=== PATIENT | male | born 1975 | race African-American/Black ===

== ENCOUNTER 2016-08-16 06:31 | Emergency (ER) | payer OTHER ==
[~2016-08-16] VITALS: Ht 190.5 cm; Wt 147.2 kg
[~2016-08-16 06:31] MED LIST: GABA300C5 PO; METH4PAK PO; METH5TAB PO; PANT40TA3 PO
[2016-08-16 06:39] VITALS: BP 125/80; PULSE 92; RESP 20; TEMP 98.3; O2SAT 95
[2016-08-16] MEDS ORDERED: TRAM50TA PO (06:54)
[2016-08-16] MEDS ORDERED: GLIM2TAB PO (06:54)
[2016-08-16] MEDS ORDERED: LOSA100T PO (06:54)
[2016-08-16 07:00] VITALS: RESP 16; O2SAT 97
[2016-08-16] MEDS ORDERED: SODIUM CHLOR 0.9% 1000 ML INJ 1,000 ML IV SCH (07:07)
[2016-08-16] MEDS ORDERED: LIDOCAINE VISCOUS 2% SOLN 15 ML UDC PO ONE (07:15)
[2016-08-16] MEDS ORDERED: MORPHINE SULFATE 4 MG/ML INJ IV PUSH ONE (07:15)
[2016-08-16] MEDS ORDERED: ALUMINUM/MAGNESIUM/SIMETH 30 ML CUP PO ONE (07:15)
[2016-08-16] MEDS ORDERED: DICYCLOMINE HCL 10 MG CAP PO ONE (07:15)
[2016-08-16] MEDS ORDERED: HYDROmorphone HCL PF 1 MG/ML VIAL IVS ONE (07:15)
[2016-08-16 07:25] LABS: AUTOMATED NEUTROPHIL # 2.5 TH/MM3 (1.8-7.7); BASOPHIL % 0.5 % (0.0-2.0); EOSINOPHIL % 0.8 % (0.0-4.0); HEMATOCRIT 44.2 % (39.0-51.0); HEMO FLAGS DIFF FINAL; LYMPH % 39.6 % (9.0-44.0); LYMPHOCYTE # 1.9 TH/MM3 (1.0-4.8); MEAN CELL VOLUME 81.9 FL (80.0-100.0); MEAN CORPUSCULAR HEMOGLOBIN 27.1 PG (27.0-34.0); MONO % 9.8 % (0.0-8.0); NEUT % 49.3 % (16.0-70.0); PLATELET COUNT 168 TH/MM3 (150-450); RED CELL DISTRIBUTION WIDTH 12.7 % (11.6-17.2); WHITE BLOOD COUNT 4.9 TH/MM3 (4.0-11.0)
[2016-08-16] MEDS: SODIUM CHLORIDE 0.9% FLUSH 10 ML FLUSH IV FLUSH PRN ×2 (07:33→08:40)
[2016-08-16 07:39] LABS: CHLORIDE 104 MEQ/L (98-107); POTASSIUM 4.2 MEQ/L (3.5-5.1); SODIUM (NA) 141 MEQ/L (136-145)
[2016-08-16 07:43] LABS: ANION GAP 9 MEQ/L (5-15); BICARBONATE 27.6 MEQ/L (21.0-32.0); BLOOD UREA NITROGEN 13 MG/DL (7-18)
[2016-08-16 07:46] LABS: ALT (GPT) 26 U/L (12-78); AST (GOT) 10 U/L (15-37); GLOMERULAR FILTRATION RATE 74 ML/MIN (>89)
[2016-08-16 07:48] LABS: TOTAL BILIRUBIN ADULT 0.4 MG/DL (0.2-1.0)
[2016-08-16 07:49] LABS: ALKALINE PHOSPHATASE 48 U/L (45-117)
--- NOTE | 2016-08-16 08:04 | PD ---
HPI Chief Complaint: Abdominal Pain Time Seen by Provider: 06:57 Travel History International Travel<30 days: No Contact w/Intl Traveler<30days: No Traveled to known affect area: No History of Present Illness HPI 41-year-old male arrives to the ER complaining of abdominal pain nausea and vomiting for about one week. Bowel movements tend to cause nausea and vomiting. The location of the abdominal pain is epigastric and in the region of the left abdomen. He's had no fever. Pizza that was his last food. Hot showers haven't been helpful. Similar events have occurred previously however evidently fairly extensive workups have failed to yield a diagnosis. He reports that past medical history of diabetes type 2, hypertension as well as a right knee surgery. His allergies include metformin and morphine. PFSH Past Medical History Blood Disorders: No Cancer: No Cardiovascular Problems: No Diabetes: Yes Patient Takes Glucophage: No Diminished Hearing: No Endocrine: No Gastrointestinal Disorders: Yes (IBS; UNKOWN ABD/ GASTRIC ISSUES ) GERD: No Genitourinary: No Hiatal Hernia: No Hypertension: Yes Immune Disorder: No Implanted Vascular Access Dvce: Yes Musculoskeletal: Yes (CHRONIC BACK, r knee) Neurologic: Yes Psychiatric: No Reproductive: No Respiratory: Yes Ulcer: No Tetanus Vaccination: < 5 Years Influenza Vaccination: No PNEUMOCCOCAL Vaccine (Year): 2 Past Surgical History Other Surgery: No Social History Alcohol Use: No Tobacco Use: No Substance Use: No Allergies-Medications (Allergen,Severity, Reaction): Coded Allergies: Morphine (Verified Allergy, Severe, NAUSEA (PT ALLERGICE PER PT ON ORDER@0350), 08/16/16) Metformin (Verified Allergy, Unknown, 08/16/16) Reported Meds & Prescriptions Reported Meds & Active Scripts Active Phenergan (Promethazine HCl) 25 Mg Tab 25 Mg PO Q6H PRN Reported Tramadol (Tramadol HCl) 50 Mg Tab 50 Mg PO Q6H PRN Glimepiride 2 Mg Tab 2 Mg PO BIDAC Losartan (Losartan Potassium) 100 Mg Tab 100 Mg PO DAILY Review of Systems Except as stated in HPI: all other systems reviewed are Neg Physical Exam Narrative GENERAL: 41-year-old male pleasant well-nourished well-developed moderate distress SKIN: Focused skin assessment warm/dry. HEAD: Atraumatic. Normocephalic. EYES: Pupils equal and round. No scleral icterus. No injection or drainage. ENT: No nasal bleeding or discharge. Mucous membranes pink and moist. NECK: Trachea midline. No JVD. CARDIOVASCULAR: Regular rate and rhythm. No murmur appreciated. RESPIRATORY: No accessory muscle use. Clear to auscultation. Breath sounds equal bilaterally. GASTROINTESTINAL: Diffuse nonspecific tenderness. MUSCULOSKELETAL: No obvious deformities. No clubbing. No cyanosis. No edema. NEUROLOGICAL: Awake and alert. No obvious cranial nerve deficits. Motor grossly within normal limits. Normal speech. PSYCHIATRIC: Appropriate mood and affect; insight and judgment normal. Data Data Last Documented VS Vital Signs Date Time Temp Pulse Resp B/P Pulse Ox O2 Delivery O2 Flow Rate FiO2 08/16/16 08:15 64 16 129/70 98 Room Air 08/16/16 06:39 98.3 Vital signs reviewed Orders Complete Blood Count With Diff (08/16/16 07:07) Comprehensive Metabolic Panel (08/16/16 07:07) Lipase (08/16/16 07:07) Iv Access Insert/Monitor (08/16/16 07:07) Ecg Monitoring (08/16/16 07:07) Oximetry (08/16/16 07:07) Morphine Inj (Morphine Inj) (08/16/16 07:15) Sodium Chlor 0.9% 1000 Ml Inj (Ns 1000 M (08/16/16 07:07) Sodium Chloride 0.9% Flush (Ns Flush) (08/16/16 07:15) Dicyclomine (Bentyl) (08/16/16 07:15) Hydromorphone Pf Inj (Dilaudid Pf Inj) (08/16/16 07:15) Al-Mag Hy-Si 40-40-4 Mg/Ml Liq (Mag-Al P (08/16/16 07:15) Lidocaine 2% Viscous (Xylocaine 2% Visco (08/16/16 07:15) Hydromorphone Pf Inj (Dilaudid Pf Inj) (08/16/16 08:15) Prochlorperazine Inj (Compazine Inj) (08/16/16 08:15) Sodium Chlor 0.9% 1000 Ml Inj (Ns 1000 M (08/16/16 08:15) Labs Laboratory Tests Test 08/16/16 07:15 White Blood Count 4.9 TH/MM3 Red Blood Count 5.40 MIL/MM3 Hemoglobin 14.6 GM/DL Hematocrit 44.2 % Mean Corpuscular Volume 81.9 FL Mean Corpuscular Hemoglobin 27.1 PG Mean Corpuscular Hemoglobin 33.0 % Concent Red Cell Distribution Width 12.7 % Platelet Count 168 TH/MM3 Mean Platelet Volume 8.4 FL Neutrophils (%) (Auto) 49.3 % Lymphocytes (%) (Auto) 39.6 % Monocytes (%) (Auto) 9.8 % Eosinophils (%) (Auto) 0.8 % Basophils (%) (Auto) 0.5 % Neutrophils # (Auto) 2.5 TH/MM3 Lymphocytes # (Auto) 1.9 TH/MM3 Monocytes # (Auto) 0.5 TH/MM3 Eosinophils # (Auto) 0.0 TH/MM3 Basophils # (Auto) 0.0 TH/MM3 CBC Comment DIFF FINAL Differential Comment Sodium Level 141 MEQ/L Potassium Level 4.2 MEQ/L Chloride Level 104 MEQ/L Carbon Dioxide Level 27.6 MEQ/L Anion Gap 9 MEQ/L Blood Urea Nitrogen 13 MG/DL Creatinine 1.30 MG/DL Estimat Glomerular Filtration 74 ML/MIN Rate Random Glucose 229 MG/DL Calcium Level 8.9 MG/DL Total Bilirubin 0.4 MG/DL Aspartate Amino Transf 10 U/L (AST/SGOT) Alanine Aminotransferase 26 U/L (ALT/SGPT) Alkaline Phosphatase 48 U/L Total Protein 7.8 GM/DL Albumin 4.1 GM/DL Lipase 95 U/L [facility] Medical Decision Making Medical Screen Exam Complete: Yes Emergency Medical Condition: Yes Medical Record Reviewed: Yes Differential Diagnosis Constipation, Gastritis, Acute Cholecystitis, Biliary Colic, Pancreatitis, VICK , Hepatitis, Bowel Obstruction, Cystitis, Mesenteric Ischemia, AAA, Appendicitis , Renal Stone/Hydronephrosis, GERD, perforated viscous Narrative Course CBC & BMP Diagram 08/16/16 07:15 LFTs normal Lipase normal Patient received analgesia and IV fluids and antiemetics. He was reassessed at 8 AM and reports moderate improvement though believes additional medical interventions may help. He received a second 0.5 mg dose of morphine and another liter of saline. His blood work is quite reassuring. Given the recurrent nature of this complaint underlying emergency is considered less likely. Diagnosis Primary Impression: Abdominal pain Qualified Code: R10.9 - Abdominal pain, unspecified location Additional Impression: Nausea & vomiting Qualified Code: R11.2 - Nausea and vomiting, intractability of vomiting not specified, unspecified vomiting type Referrals: DR CALHOUN 2 days Additional Instructions: You have a choice when it comes to health care, and we are glad that you chose [facility]. Hopefully, we have met your expectations on today's visit. You are welcome to return to [facility] at any time, as we are committed to meeting the health care needs of our community. Med/Other Pt SpecificInfo: Prescription(s) given Scripts Promethazine (Phenergan)25 Mg Tab25 Mg PO Q6H PRN (Nausea/Vomiting) #10 TAB Ref 0 Prov:Sebastian Spencer MD 08/16/16 Disposition: 01 DISCHARGE HOME Condition: Stable Sebastian Spencer MD Aug 16, 2016 08:04
[2016-08-16 08:15] VITALS: BP 129/70; PULSE 64; RESP 16; O2SAT 98
[2016-08-16] MEDS ORDERED: HYDROmorphone HCL PF 1 MG/ML VIAL IV PUSH ONE (08:15)
[2016-08-16] MEDS ORDERED: PROCHLORPERAZINE INJ 10 MG/2 ML VIAL IV PUSH ONE (08:15)
[2016-08-16] MEDS ORDERED: SODIUM CHLOR 0.9% 1000 ML INJ 1,000 ML IV ONE (08:15)
[2016-08-16] MEDS ORDERED: PROM25TA5 PO (08:49)
[2016-08-16 09:25] VITALS: RESP 16
[2016-08-16 09:44] VITALS: BP 123/67
== END 2016-08-16 09:46 | disposition home or self-care (01) ==
LOC: PHED 06:31
DX: R10.9 Unspecified abdominal pain (principal); R11.2 Nausea with vomiting, unspecified; E11.9 Type 2 diabetes mellitus without complications; I10 Essential (primary) hypertension; Z79.84 Long term (current) use of oral hypoglycemic drugs; Z87.19 Personal history of other diseases of the digestive system; Z87.39 Personal history of other diseases of the musculoskeletal system and connective tissue; Z86.69 Personal history of other diseases of the nervous system and sense organs; Z87.09 Personal history of other diseases of the respiratory system
CPT/HCPCS: 80053; 83690; 85025; 96361; 96374; 96375; 96376; 99284; J0780; J1170; J7030

== ENCOUNTER 2016-08-17 07:55 | Observation (INO) | payer OTHER ==
[2016-08-17] VITALS (7 sets, daily range): BP systolic 124–184; BP diastolic 65–116; PULSE 60–78; RESP 16–22; TEMP 96.8–99.1; O2SAT 96–98
[~2016-08-17] VITALS: Ht 188 cm; Wt 145.6 kg
[~2016-08-17 07:55] MED LIST changes: -GABA300C5 PO; +GLIM2TAB PO; +LOSA100T PO; -METH4PAK PO; -METH5TAB PO; -PANT40TA3 PO; +PROM25TA5 PO; +TRAM50TA PO
[2016-08-17] MEDS ORDERED: SODIUM CHLOR 0.9% 1000 ML INJ 1,000 ML IV SCH (08:17)
[2016-08-17] MEDS ORDERED: DICYCLOMINE HCL 20 MG/2 ML VIAL IM ONE (08:30)
[2016-08-17] MEDS ORDERED: LIDOCAINE VISCOUS 2% SOLN 15 ML UDC PO ONE (08:30)
[2016-08-17] MEDS ORDERED: FAMOTIDINE 20 MG/2 ML VIAL IV PUSH ONE (08:30)
[2016-08-17] MEDS ORDERED: ALUMINUM/MAGNESIUM/SIMETH 30 ML CUP PO ONE (08:30)
[2016-08-17] MEDS ORDERED: SODIUM CHLORIDE 0.9% FLUSH 10 ML FLUSH IV FLUSH PRN (08:30)
[2016-08-17] MEDS ORDERED: ONDANSETRON HCL 4 MG/2 ML VIAL IVP ONE (08:30)
--- NOTE | 2016-08-17 08:34 | PD ---
HPI Chief Complaint: GI Complaint Time Seen by Provider: 08:06 Travel History International Travel<30 days: No Contact w/Intl Traveler<30days: No Traveled to known affect area: No History of Present Illness HPI Is a 41-year-old man who presents to the emergency department complaining of ongoing mid upper abdominal pain associated with nausea and vomiting. The something the patient had trouble with for some time. He has exacerbations or couple times a year. Previous workup that showed no clear etiology. He has had gastritis and positive H. pylori in the past, looking back at around 2010 or so. Since then he's had multiple negative workups. He has not had any abdominal surgeries. He otherwise had been feeling generally well and healthy prior to about 1 week ago when he began experiencing recurrent upper abdominal pain, with nausea and vomiting. Nausea vomiting symptoms are worse after bowel movement. He has not really noticed any aggravation with eating. He's had decreased bowel movements since the onset of the symptoms. He otherwise had been feeling generally well and healthy. History Past Medical History Narrative Medical Diabetes Hypertension PNEUMOCCOCAL Vaccine (Year): 2 Social History Alcohol Use: No Tobacco Use: No Allergies-Medications (Allergen,Severity, Reaction): Coded Allergies: Morphine (Verified Allergy, Severe, NAUSEA (PT ALLERGICE PER PT ON ORDER@0350), 08/17/16) Metformin (Verified Allergy, Unknown, 08/17/16) Reported Meds & Prescriptions Reported Meds & Active Scripts Active Phenergan (Promethazine HCl) 25 Mg Tab 25 Mg PO Q6H PRN Reported Tramadol (Tramadol HCl) 50 Mg Tab 50 Mg PO Q6H PRN Glimepiride 2 Mg Tab 2 Mg PO BIDAC Losartan (Losartan Potassium) 100 Mg Tab 100 Mg PO DAILY Review of Systems Except as stated in HPI: all other systems reviewed are Neg Physical Exam Narrative GENERAL: 41-year-old man, appears uncomfortable but nontoxic. ENT: No nasal bleeding or discharge. Mucous membranes pink and moist. NECK: Trachea midline. No JVD. CARDIOVASCULAR: Warm and well-perfused. RESPIRATORY: Normal rate and effort. No respiratory distress. GASTROINTESTINAL: Abdomen soft, mild diffuse tenderness, more in the upper abdomen. No rebound or guarding. No focal right upper quadrant tenderness. MUSCULOSKELETAL: No obvious deformities. No edema. NEUROLOGICAL: Awake and alert. No obvious cranial nerve deficits. Motor grossly within normal limits. Normal speech. Data Data Last Documented VS Vital Signs Date Time Temp Pulse Resp B/P Pulse Ox O2 Delivery O2 Flow Rate FiO2 08/17/16 09:19 78 18 184/96 98 Room Air 08/17/16 08:01 99.0 Orders Complete Blood Count With Diff (08/17/16 08:17) Comprehensive Metabolic Panel (08/17/16 08:17) Lipase (08/17/16 08:17) Iv Access Insert/Monitor (08/17/16:17) Ecg Monitoring (08/17/16:17) Oximetry (08/17/16 08:17) Ondansetron Inj (Zofran Inj) (08/17/16 08:30) Sodium Chlor 0.9% 1000 Ml Inj (Ns 1000 M (08/17/16 08:17) Sodium Chloride 0.9% Flush (Ns Flush) (08/17/16 08:30) Famotidine Inj (Pepcid Inj) (08/17/16 08:30) Dicyclomine Inj (Bentyl Inj) (08/17/16 08:30) Al-Mag Hy-Si 40-40-4 Mg/Ml Liq (Mag-Al P (08/17/16 08:30) Lidocaine 2% Viscous (Xylocaine 2% Visco (08/17/16 08:30) Hydromorphone Pf Inj (Dilaudid Pf Inj) (08/17/16 08:45) Ct Abd/Pel W Iv Contrast(Rout) (08/17/16 ) Iohexol 350 Inj (Omnipaque 350 Inj) (08/17/16 10:03) Place In Observation (08/17/16 ) Consult Gastroenterology (08/17/16 ) Activity Oob Ad [place] (08/17/16 10:33) Vital Signs (Adult) DARLENE.Q4H (08/17/16 10:33) Diet Clear Liquid (08/17/16 Lunch) Sodium Chlor 0.9% 1000 Ml Inj (Ns 1000 M (08/17/16 10:45) Ondansetron Inj (Zofran Inj) (08/17/16 10:45) Pantoprazole Inj (Protonix Inj) (08/17/16 10:45) Basic Metabolic Panel (Bmp) (08/18/16 06:00) Admit Order (Ed Use Only) (08/17/16 ) Labs Laboratory Tests Test 08/17/16 08:36 White Blood Count 6.9 TH/MM3 Red Blood Count 5.54 MIL/MM3 Hemoglobin 14.6 GM/DL Hematocrit 45.4 % Mean Corpuscular Volume 81.9 FL Mean Corpuscular Hemoglobin 26.4 PG Mean Corpuscular Hemoglobin 32.2 % Concent Red Cell Distribution Width 12.7 % Platelet Count 166 TH/MM3 Mean Platelet Volume 9.4 FL Neutrophils (%) (Auto) 44.5 % Lymphocytes (%) (Auto) 44.1 % Monocytes (%) (Auto) 10.0 % Eosinophils (%) (Auto) 0.6 % Basophils (%) (Auto) 0.8 % Neutrophils # (Auto) 3.1 TH/MM3 Lymphocytes # (Auto) 3.0 TH/MM3 Monocytes # (Auto) 0.7 TH/MM3 Eosinophils # (Auto) 0.0 TH/MM3 Basophils # (Auto) 0.1 TH/MM3 CBC Comment DIFF FINAL Differential Comment Sodium Level 143 MEQ/L Potassium Level 4.1 MEQ/L Chloride Level 104 MEQ/L Carbon Dioxide Level 30.8 MEQ/L Anion Gap 8 MEQ/L Blood Urea Nitrogen 11 MG/DL Creatinine 1.30 MG/DL Estimat Glomerular Filtration 74 ML/MIN Rate Random Glucose 203 MG/DL Calcium Level 9.0 MG/DL Total Bilirubin 0.5 MG/DL Aspartate Amino Transf 11 U/L (AST/SGOT) Alanine Aminotransferase 27 U/L (ALT/SGPT) Alkaline Phosphatase 48 U/L Total Protein 8.0 GM/DL Albumin 4.3 GM/DL Lipase 105 U/L [facility] Medical Decision Making Medical Screen Exam Complete: Yes Emergency Medical Condition: Yes Interpretation(s) LABS: CBC generally unremarkable. CMP: Glucose 203, otherwise unremarkable Lipase normal CT abdomen and pelvis: No acute disease. No significant change. Differential Diagnosis Gastritis, peptic ulcer disease, hepatobiliary disease, pancreatitis, cholecystitis, other Narrative Course Medical decision making INITIAL: This a 41-year-old male with intermittent episodes of upper abdominal pain and vomiting. Patient has a hiatal hernia, and has a gastritis in the past. No history of hepatobiliary disease. History of pancreatitis. Patient was seen in the emergency department yesterday with similar symptoms. Scattered prescription for Phenergan but hasn't really helped. His tried some tramadol at home as well. We'll recheck labs, consider imaging although all of his imaging is been negative in the past. Reassess. FINAL: Initial workups unremarkable. Patient still was severe pain, vomiting. He is in the ER 24 hours ago. We'll plan on admission for observation and pain control. Diagnosis Primary Impression: Abdominal pain Additional Impression: Nausea & vomiting Ruperto Jaquez MD Aug 17, 2016 08:34
[2016-08-17] MEDS ORDERED: HYDROmorphone HCL PF 1 MG/ML VIAL IV PUSH ONE (08:45)
[2016-08-17 08:47] LABS: AUTOMATED NEUTROPHIL # 3.1 TH/MM3 (1.8-7.7); BASOPHIL # 0.1 TH/MM3 (0-0.2); BASOPHIL % 0.8 % (0.0-2.0); EOSINOPHIL % 0.6 % (0.0-4.0); HEMATOCRIT 45.4 % (39.0-51.0); HEMO FLAGS DIFF FINAL; LYMPH % 44.1 % (9.0-44.0); MEAN CELL VOLUME 81.9 FL (80.0-100.0); MEAN CORPUSCULAR HEMOGLOBIN 26.4 PG (27.0-34.0); MEAN CORPUSCULAR HGB CONC 32.2 % (32.0-36.0); NEUT % 44.5 % (16.0-70.0); PLATELET COUNT 166 TH/MM3 (150-450); RED BLOOD COUNT 5.54 MIL/MM3 (4.50-5.90); RED CELL DISTRIBUTION WIDTH 12.7 % (11.6-17.2); WHITE BLOOD COUNT 6.9 TH/MM3 (4.0-11.0)
[2016-08-17 08:54] LABS: CHLORIDE 104 MEQ/L (98-107); POTASSIUM 4.1 MEQ/L (3.5-5.1); SODIUM (NA) 143 MEQ/L (136-145)
[2016-08-17 08:57] LABS: ANION GAP 8 MEQ/L (5-15); BICARBONATE 30.8 MEQ/L (21.0-32.0)
[2016-08-17 08:58] LABS: BLOOD UREA NITROGEN 11 MG/DL (7-18)
[2016-08-17 09:00] LABS: ALT (GPT) 27 U/L (12-78); AST (GOT) 11 U/L (15-37); GLOMERULAR FILTRATION RATE 74 ML/MIN (>89)
[2016-08-17 09:02] LABS: TOTAL BILIRUBIN ADULT 0.5 MG/DL (0.2-1.0)
[2016-08-17 09:03] LABS: ALKALINE PHOSPHATASE 48 U/L (45-117)
--- NOTE | 2016-08-17 09:59 | RADHPO ---
EXAM DATE/TIME: 08/17/2016 09:25 [facility] COMPARISON: CT ABDOMEN & PELVIS W CONTRAST, October 27, 2014, 20:22. INDICATIONS : Vomiting and diffuse abdominal pain. IV CONTRAST: 95 cc Omnipaque 350 (iohexol) IV ORAL CONTRAST: No oral contrast ingested. RADIATION DOSE: 22.45 CTDIvol (mGy) MEDICAL HISTORY : Gastroesophageal reflux disease. Hypertension. Inflammatory bowel disease.Diabetes SURGICAL HISTORY : ENCOUNTER: Initial ACUITY: 1 day PAIN SCALE: 4/10 LOCATION: Bilateral abdomen pelvis TECHNIQUE: Volumetric scanning of the abdomen and pelvis was performed. Using automated exposure control and ad justment of the mA and/or kV according to patient size, radiation dose was kept as low as reasonably achievable to obtain optimal diagnostic quality images. FINDINGS: LOWER LUNGS: The visualized lower lungs are clear. LIVER: Homogeneous density without lesion. There is no dilation of the biliary tree. No calcified gallston es. SPLEEN: Normal size without lesion. PANCREAS: Within normal limits. KIDNEYS: 12 mm simple cyst in the upper pole of the left kidney is stable. Otherwise kidneys are normal in siz e and shape. There is no mass, stone or hydronephrosis. ADRENAL GLANDS: Within normal limits. VASCULAR: There is no aortic aneurysm. BOWEL/MESENTERY: The stomach, small bowel, and colon demonstrate no acute abnormality. There is no free intraperitone al air or fluid. ABDOMINAL WALL: Within normal limits. RETROPERITONEUM: There is no lymphadenopathy. BLADDER: No wall thickening or mass. REPRODUCTIVE: Within normal limits. INGUINAL: There is no lymphadenopathy or hernia. MUSCULOSKELETAL: Within normal limits for patient age. CONCLUSION: No acute disease. No significant change has occurred. Dharmesh Narayan MD on August 17, 2016 at 9:54 Board Certified Radiologist. This report was verified electronically.
[2016-08-17] MEDS ORDERED: IOHEXOL 350 MG/ML 10 ML VIAL (for RAD DIAG) IV ONE (10:03)
[2016-08-17] MEDS ORDERED: HYDROmorphone HCL PF 1 MG/ML VIAL IV PRN (10:45)
[2016-08-17] MEDS ORDERED: NALOXONE HCL 0.4 MG/ML AMP IV PRN (10:45)
[2016-08-17] MEDS: PANTOPRAZOLE SODIUM 40 MG VIAL IV PUSH SCH (11:09)
[2016-08-17] MEDS: SODIUM CHLOR 0.9% 1000 ML INJ 1,000 ML IV SCH ×3 (11:10→21:49)
[2016-08-17] MEDS: ONDANSETRON HCL 4 MG/2 ML VIAL IV PUSH PRN ×2 (11:49→18:43)
[2016-08-17] MEDS: HYDROmorphone HCL PF 1 MG/ML VIAL IV PRN ×4 (11:50→21:49)
[2016-08-17] MEDS ORDERED: DEXTROSE 50% IN WATER 50 ML VIAL(D50) IV PUSH PRN (12:30)
[2016-08-17] MEDS ORDERED: GLUCAGON 1 MG/ML VIAL OTHER PRN (12:30)
[2016-08-17] MEDS: LOSARTAN 50 MG TAB PO SCH (12:46)
--- NOTE | 2016-08-17 13:22 | MH ---
cc: DOMINGA YOUNG M.D. DATE OF ADMISSION: 08/17/2016 ADMISSION DIAGNOSIS 1. Recurrent upper abdominal pain with recurrent vomiting for 1 week, questionable etiology. 2. Type 2 diabetes mellitus. 3. Hypertension. 4. History of colon polyps. 5. History of cervical disk disease with left cervical radiculopathy. 6. Past history of gastritis. PERTINENT HISTORY This is a 41-year-old black male who came to the emergency room for the second time in the last day. He was seen here at [facility] yesterday with abdominal pain in the upper abdomen with no clear-cut etiology of pain. He had been having vomiting as well. He was given Phenergan and did not really help. He continued to have vomiting and worsening upper abdominal pain. This morning he came to the ED where he had episodes of retching and not really bringing anything up, with crampy pain in his upper abdomen. He states his symptoms began about a week ago but have gotten worse in the last couple days. He has had problems with this symptomatology off and on since 2010. He has had hospitalizations back then, some time up to [id number] weeks. He even went up to [facility] at that time, went there one time. He has had prior gastric emptying studies in the past, did not show any definite gastroparesis. He has had prior upper endoscopies on more than one occasion but the last one was on 12/02/2014 where he was noted to have a gastric polyp, hiatal hernia and gastritis. He had EGD on 03/07/2011 that showed small Reina Leigh tear and gastritis. He has had colon evaluation with colonoscopy on 12/02/2014 that showed a polyp. He has had intermittent CAT scans that did not reveal the cause of his symptoms. He had a HIDA biliary scan on 03/08/2011 that showed normal gallbladder ejection fraction according to the report equaling approximately 40%. There was minimal biliary enteric reflux noted at the time, no evidence of cystic duct or distal common bile duct obstruction. He has had no diarrhea, constipation, melena, rectal bleeding. He has not been vomiting any blood. A CAT scan done today showed no acute process. He is being admitted for pain control and control of his vomiting and a GI consult. MEDICAL HISTORY 1. He has been under treatment for type 2 diabetes mellitus for about a year now. 2. He is under treatment for hypertension. 3. He as mentioned had a colon polyp on 12/02/2014. 4. He has had gastritis on prior EGD on 03/07/2011 and 12/02/2014. 5. He recently was seen by neurosurgery Dr. Stock for a left cervical disk disease with left cervical radiculopathy. He has had no heart disease, history of liver or kidney disease. No lung disease. No stroke or seizure. No thyroid disease. PAST SURGICAL HISTORY 1. He has had arthroscopy of the right knee with microfracture procedure on 02/11/2015. No other operations. 2. He has had the upper endoscopies mentioned on 03/07/2011 and 12/02/2014. 3. He had a colonoscopy in July of 2011 that showed just some slight rectal inflammation, otherwise negative. 4. He had a colonoscopy 12/02/2014 with a polyp removed. ALLERGIES APPARENTLY MORPHINE CAUSES NAUSEA. HE HAS HAD PROBLEM WITH METFORMIN CAUSES DIARRHEA. MEDICATIONS 1. He is on Glimepiride he just takes 2 mg tablet one a day. 2. He is on losartan 100 mg a day. 3. He used to be on Metoprolol 50 mg at bedtime but he states he has not been taking that. 4. He was on Methadone for neck pain 5 mg twice a day but has not been taking that recently. 5. He had Tramadol at home 50 mg that he only would occasionally take for pain. FAMILY HISTORY His parents are living. His mother is 66 and has hyperlipidemia and gastroesophageal reflux disease. Father is 73 and has hypertension, hyperlipidemia and dementia. SOCIAL HISTORY He is . 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 REVIEW OF SYSTEMS GENERAL: No fever, chills, sweats. HEENT: Without complaints. CARDIOVASCULAR: No chest pain, orthopnea, PND. PULMONARY: No cough, hemoptysis, wheezing. GI: As mentioned. : Without complaints. MUSCULOSKELETAL: With the neck pain and pain down the left arm at times from his neck. NEURO: Without any focal weakness, confusion. LABORATORY DATA His white count is 6.9, hemoglobin 14.6, platelet count 166, lipase was 105, AST, ALT, alkaline phosphatase were normal, random glucose was 203, BUN 11, creatinine 1.3, was 1.3 yesterday in the ED. Sodium 143, potassium 4.1, chloride 104, CO2 30.8. IMAGING STUDIES CT scan of the abdomen as mentioned showed no acute process. ASSESSMENT As noted. PLAN We will put him on some IV fluids with normal saline, will monitor his glucose was sliding scale coverage at a low dose of NovoLog. We will hold his glimepiride for now. We are just going to put him on a clear liquid diet for now. Will give him some ondansetron for his vomiting and some Dilaudid for pain. He was given Dilaudid in the ED and has had no problem with that. We will consult gastroenterology for their input. He has had pretty extensive workup in the past for these recurrent symptoms. He gets them about every 6 months, according to him. Sometimes he is able to only have it for a short time and then other times it has lasted for longer. We will put him back on losartan for his blood pressure. MD ADRY Joe/MELLISSA /12:33 PM /12:54 PM
--- NOTE | 2016-08-17 14:57 | GIPROC ---
[facility] [address] [place] [address], [id number] EGD PROCEDURE REPORT EXAM DATE: 08/17/2016 PATIENT NAME: Geo Noonan MR #: [id number] BIRTHDATE: 1975 ATTENDING: Sara Steiner MD ORDER #: [id number] [employer]: Jessica Durham and Sage Matt STATUS: inpatient INDICATIONS: The patient is a 41 yr old male here for an EGD due to vomiting PROCEDURE PERFORMED: EGD w/ biopsy MEDICATIONS: None and Per Anesthesia. TOPICAL ANESTHETIC: none CONSENT: The patient understands the risks and benefits of the procedure and understands that these risks include, but are not limited to: sedation, allergic reaction, infection, perforation and/or bleeding. Alternative means of evaluation and treatment include, among others: physical exam, x-rays, and/or surgical intervention. The patient elects to proceed with this endoscopic procedure. medical equipment was checked for proper function. Hand hygiene and appropriate measures for infection prevention was taken. After the risks, benefits and alternatives of the procedure were thoroughly explained, Informed consent was verified, confirmed and timeout was successfully executed by the treatment team. The patient was anesthetized with topical anesthesia and the [id number] (Pedi C) endoscope was introduced through the mouth and advanced to the second portion of the duodenum. Retroflexed views revealed no abnormalities The gastroscope was then slowly withdrawn and removed. Normal exam, Bx from antrum to R/O H pylori. ADVERSE EVENTS: There were no complications. IMPRESSIONS: 1. Normal exam, Bx from antrum to R/O H pylori 2. Retroflexed views revealed no abnormalities 3- could be gastroparesis because of DM RECOMMENDATIONS: 1. Await biopsy results. Biopsy results will not be ready for 7-10 days. If you don't hear from us in two weeks, call our office for biopsy results. 2. Anti-reflux regimen 3. Gastric emptying study PATIENT CONDITION: stable DISPOSITION: Inpatient REPEAT EXAM: Return as needed for EGD Sara Steiner MD eSigned: Sara Steiner MD 08/17/2016 2:57 PM cc:
[2016-08-17] MEDS ORDERED: PROPOFOL 200 MG/20 ML AMP IV ONE (15:47)
[2016-08-17] MEDS: INSULIN ASPART SUPPLEMENTAL SCALE SQ SCH ×2 (16:25→21:00)
[2016-08-17] MEDS: DOCUSATE SODIUM 100 MG/10 ML UDC PO SCH (20:59)
[2016-08-18] VITALS: BP 130/75; PULSE 65; RESP 22; TEMP 97.6; O2SAT 97
[2016-08-18] MEDS: HYDROmorphone HCL PF 1 MG/ML VIAL IV PRN ×6 (02:34→23:22)
[2016-08-18] MEDS: ONDANSETRON HCL 4 MG/2 ML VIAL IV PUSH PRN (05:57)
[2016-08-18] MEDS: SODIUM CHLOR 0.9% 1000 ML INJ 1,000 ML IV SCH ×3 (05:58→21:08)
[2016-08-18] MEDS: INSULIN ASPART SUPPLEMENTAL SCALE SQ SCH ×4 (06:04→21:00)
[2016-08-18 06:17] LABS: POTASSIUM 3.9 MEQ/L (3.5-5.1)
[2016-08-18 06:40] LABS: BICARBONATE 27.5 MEQ/L (21.0-32.0)
[2016-08-18 08:00] VITALS: BP 140/86; PULSE 51; RESP 18; TEMP 98.3; O2SAT 93
[2016-08-18] MEDS: LOSARTAN 50 MG TAB PO SCH (08:14)
[2016-08-18] MEDS: PANTOPRAZOLE SODIUM 40 MG VIAL IV PUSH SCH (08:15)
[2016-08-18] MEDS: DOCUSATE SODIUM 100 MG/10 ML UDC PO SCH ×2 (08:15→21:09)
--- NOTE | 2016-08-18 09:46 | HHI.PR ---
Subjective Remarks Still nausea but no vomiting. Has been on liquid diet. Still has epigastric pain but is better. Still using Dilaudid. EGD yesterday was negative. Objective Vitals Vital Signs Date Time Temp Pulse Resp B/P Pulse Ox O2 Delivery O2 Flow Rate FiO2 08/18/16 08:00 98.3 51 18 140/86 93 08/18/16 00:00 97.6 65 22 130/75 97 08/17/16 20:00 99.1 60 22 142/84 97 08/17/16 16:31 20 08/17/16 16:00 97.1 61 20 158/94 96 08/17/16 15:27 56 17 135/69 98 08/17/16 15:17 59 16 146/80 98 08/17/16 15:07 98.1 79 16 130/63 98 08/17/16 13:19 98.5 65 18 124/65 96 08/17/16 11:48 08/17/16 11:46 96.8 77 22 176/116 96 08/17/16 08/17/16 08/18/16 15:00 23:00 07:00 Intake Total 1250 ml 1249 ml 1513 ml Balance 1250 ml 1249 ml 1513 ml Intake Oral 420 ml IV Total 1250 ml 849 ml 1093 ml Other 400 ml # Voids 3 # Bowel Movements 1 Result Diagram: 08/17/16 0836 08/18/16 0542 Other Results Laboratory Tests Test 08/17/16 08/18/16 08:36 05:42 White Blood Count 6.9 TH/MM3 Red Blood Count 5.54 MIL/MM3 Hemoglobin 14.6 GM/DL Hematocrit 45.4 % Mean Corpuscular Volume 81.9 FL Mean Corpuscular Hemoglobin 26.4 PG Mean Corpuscular Hemoglobin 32.2 % Concent Red Cell Distribution Width 12.7 % Platelet Count 166 TH/MM3 Mean Platelet Volume 9.4 FL Neutrophils (%) (Auto) 44.5 % Lymphocytes (%) (Auto) 44.1 % Monocytes (%) (Auto) 10.0 % Eosinophils (%) (Auto) 0.6 % Basophils (%) (Auto) 0.8 % Neutrophils # (Auto) 3.1 TH/MM3 Lymphocytes # (Auto) 3.0 TH/MM3 Monocytes # (Auto) 0.7 TH/MM3 Eosinophils # (Auto) 0.0 TH/MM3 Basophils # (Auto) 0.1 TH/MM3 CBC Comment DIFF FINAL Differential Comment Sodium Level 143 MEQ/L 142 MEQ/L Potassium Level 4.1 MEQ/L 3.9 MEQ/L Chloride Level 104 MEQ/L 106 MEQ/L Carbon Dioxide Level 30.8 MEQ/L 27.5 MEQ/L Anion Gap 8 MEQ/L 9 MEQ/L Blood Urea Nitrogen 11 MG/DL 9 MG/DL Creatinine 1.30 MG/DL 1.00 MG/DL Estimat Glomerular Filtration 74 ML/MIN 100 ML/MIN Rate Random Glucose 203 MG/DL 179 MG/DL Calcium Level 9.0 MG/DL 8.0 MG/DL Total Bilirubin 0.5 MG/DL Aspartate Amino Transf 11 U/L (AST/SGOT) Alanine Aminotransferase 27 U/L (ALT/SGPT) Alkaline Phosphatase 48 U/L Total Protein 8.0 GM/DL Albumin 4.3 GM/DL Lipase 105 U/L EGD yesterday negative. Imaging Last Impressions Abdomen/Pelvis CT 08/17/16 0000 Signed Impressions: Service Date/Time: Wednesday, August 17, 2016 09:25 - CONCLUSION: No acute disease. No significant change has occurred. Dharmesh Narayan MD Objective Remarks Exam: WDWN black male in no distress. HEENT: Pupils equal, mouth negative Neck: No JVD Heart: RRR with no murmur Lungs: clear Abdomen: Soft, mild epigastric tenderness, no rebound or guarding Extremities: Negative Neuro: negative A/P Assessment and Plan Assessment: --Recurrent epigastric pain with vomiting: EGD negative. Check for gastroparesis. --Hypertension --Type 2 diabetes mellitus --Hx of colon polyp --Cervical disc disease with radiculopathy Plan: I will order a gastric emptying study. I will advance to a diabetic diet. Will continue monitoring of glucose and sliding scale until he is able to eat without vomiting. Continue BP medication. Continue pain medication and Ondansetron as needed. Gorge Fernandez MD Aug 18, 2016 09:46
[2016-08-18 12:00] VITALS: BP 129/77; PULSE 70; RESP 16; TEMP 97; O2SAT 99
[2016-08-18 16:00] VITALS: BP 135/77; PULSE 65; RESP 18; TEMP 98.6; O2SAT 96
--- NOTE | 2016-08-18 18:01 | HHI.GIFU ---
GI Follow-up Note Consult Follow-up Subjective: seen, examined.Tolerated full liquid diet .Awaiting gastric emptying study Objective: PHYSICAL EXAMINATION: Vitals signs stable No fever Vital Signs Date Time Temp Pulse Resp B/P Pulse Ox O2 Delivery O2 Flow Rate FiO2 08/18/16 12:00 97.0 70 16 129/77 99 HEENT: Pupils round and reactive to light; normocephalic; atraumatic; no jaundice. Throat is clear. NECK: Neck is supple, no JVD, no lymphadenopathy. CHEST: Chest is clear to auscultation and percussion. CARDIAC: Regular rate and rhythm with no murmur gallop or rubs. ABDOMEN: Soft, nondistended, nontender; no hepatosplenomegaly; bowel sounds are present in all four quadrants. EXTREMITIES: No clubbing, cyanosis, or edema. SKIN: Normal; no rash; no jaundice. 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 Available Data (labs, X- Rays, Procedues) : Laboratory Tests Test 08/17/16 08/18/16 08:36 05:42 White Blood Count 6.9 TH/MM3 Red Blood Count 5.54 MIL/MM3 Hemoglobin 14.6 GM/DL Hematocrit 45.4 % Mean Corpuscular Volume 81.9 FL Mean Corpuscular Hemoglobin 26.4 PG Mean Corpuscular Hemoglobin 32.2 % Concent Red Cell Distribution Width 12.7 % Platelet Count 166 TH/MM3 Mean Platelet Volume 9.4 FL Neutrophils (%) (Auto) 44.5 % Lymphocytes (%) (Auto) 44.1 % Monocytes (%) (Auto) 10.0 % Eosinophils (%) (Auto) 0.6 % Basophils (%) (Auto) 0.8 % Neutrophils # (Auto) 3.1 TH/MM3 Lymphocytes # (Auto) 3.0 TH/MM3 Monocytes # (Auto) 0.7 TH/MM3 Eosinophils # (Auto) 0.0 TH/MM3 Basophils # (Auto) 0.1 TH/MM3 CBC Comment DIFF FINAL Differential Comment Sodium Level 143 MEQ/L 142 MEQ/L Potassium Level 4.1 MEQ/L 3.9 MEQ/L Chloride Level 104 MEQ/L 106 MEQ/L Carbon Dioxide Level 30.8 MEQ/L 27.5 MEQ/L Anion Gap 8 MEQ/L 9 MEQ/L Blood Urea Nitrogen 11 MG/DL 9 MG/DL Creatinine 1.30 MG/DL 1.00 MG/DL Estimat Glomerular Filtration 74 ML/MIN 100 ML/MIN Rate Random Glucose 203 MG/DL 179 MG/DL Calcium Level 9.0 MG/DL 8.0 MG/DL Total Bilirubin 0.5 MG/DL Aspartate Amino Transf 11 U/L (AST/SGOT) Alanine Aminotransferase 27 U/L (ALT/SGPT) Alkaline Phosphatase 48 U/L Total Protein 8.0 GM/DL Albumin 4.3 GM/DL Lipase 105 U/L ASSESSMENT/PLAN: abdominal pain, nausea, vomiting possible gastroparesis gastritis Recommendations gastric emptying study continue antiemetics , ppi if negative hida scan It was a pleasure seeing Geo Noonan. Thank you for this consult. Entered by: Shelly Jones MD Aug 18, 2016 18:01
[2016-08-18 20:00] VITALS: BP 153/94; PULSE 59; RESP 20; TEMP 98.9; O2SAT 98
[2016-08-19] VITALS: BP 143/79; PULSE 64; RESP 20; TEMP 97.2; O2SAT 96
[2016-08-19] MEDS: HYDROmorphone HCL PF 1 MG/ML VIAL IV PRN ×5 (02:41→15:21)
[2016-08-19] MEDS: INSULIN ASPART SUPPLEMENTAL SCALE SQ SCH ×4 (05:54→21:15)
--- NOTE | 2016-08-19 07:02 | HHI.GIFU ---
GI Follow-up Note Consult Follow-up Subjective: Patient laying in bed comfortably, no new complaints except , feeling better.Still epigastric discomfort, nausea.No vomiting, tolerated full liquid diet well. Objective: PHYSICAL EXAMINATION: Vitals signs stable No fever Vital Signs Date Time Temp Pulse Resp B/P Pulse Ox O2 Delivery O2 Flow Rate FiO2 08/19/16 06:19 18 08/19/16 00:00 97.2 64 20 143/79 96 HEENT: Pupils round and reactive to light; normocephalic; atraumatic; no jaundice. Throat is clear, obese NECK: Neck is supple, no JVD, no lymphadenopathy. CHEST: Chest is clear to auscultation and percussion. CARDIAC: Regular rate and rhythm with no murmur gallop or rubs. ABDOMEN: Soft, nondistended, epigastric tenderness; no hepatosplenomegaly; bowel sounds are present in all four quadrants, obese EXTREMITIES: No clubbing, cyanosis, or edema. SKIN: Normal; no rash; no jaundice. 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 Available Data (labs, X- Rays, Procedues) : Laboratory Tests Test 08/17/16 08/18/16 08:36 05:42 White Blood Count 6.9 TH/MM3 Red Blood Count 5.54 MIL/MM3 Hemoglobin 14.6 GM/DL Hematocrit 45.4 % Mean Corpuscular Volume 81.9 FL Mean Corpuscular Hemoglobin 26.4 PG Mean Corpuscular Hemoglobin 32.2 % Concent Red Cell Distribution Width 12.7 % Platelet Count 166 TH/MM3 Mean Platelet Volume 9.4 FL Neutrophils (%) (Auto) 44.5 % Lymphocytes (%) (Auto) 44.1 % Monocytes (%) (Auto) 10.0 % Eosinophils (%) (Auto) 0.6 % Basophils (%) (Auto) 0.8 % Neutrophils # (Auto) 3.1 TH/MM3 Lymphocytes # (Auto) 3.0 TH/MM3 Monocytes # (Auto) 0.7 TH/MM3 Eosinophils # (Auto) 0.0 TH/MM3 Basophils # (Auto) 0.1 TH/MM3 CBC Comment DIFF FINAL Differential Comment Sodium Level 143 MEQ/L 142 MEQ/L Potassium Level 4.1 MEQ/L 3.9 MEQ/L Chloride Level 104 MEQ/L 106 MEQ/L Carbon Dioxide Level 30.8 MEQ/L 27.5 MEQ/L Anion Gap 8 MEQ/L 9 MEQ/L Blood Urea Nitrogen 11 MG/DL 9 MG/DL Creatinine 1.30 MG/DL 1.00 MG/DL Estimat Glomerular Filtration 74 ML/MIN 100 ML/MIN Rate Random Glucose 203 MG/DL 179 MG/DL Calcium Level 9.0 MG/DL 8.0 MG/DL Total Bilirubin 0.5 MG/DL Aspartate Amino Transf 11 U/L (AST/SGOT) Alanine Aminotransferase 27 U/L (ALT/SGPT) Alkaline Phosphatase 48 U/L Total Protein 8.0 GM/DL Albumin 4.3 GM/DL Lipase 105 U/L ASSESSMENT/PLAN: nausea, vomiting, epigastric tenderness possible gastroparesis gastritis Recommendations await gastric emptying , if negative HIDA scan advance diet as tolerated ppi, antiemetics if tolerates food , consider d/c home in 1-2 days with fu office in 1-2 weeks It was a pleasure seeing Geo Noonan. Thank you for this consult. Entered by: Shelly Jones MD Aug 19, 2016 07:02
--- NOTE | 2016-08-19 07:02 | HHI.PR ---
Subjective Remarks Still having pain after eating. He states he is still not ready to go home. Objective Vitals Vital Signs Date Time Temp Pulse Resp B/P Pulse Ox O2 Delivery O2 Flow Rate FiO2 08/19/16 06:19 18 08/19/16 00:00 97.2 64 20 143/79 96 08/18/16 20:00 98.9 59 20 153/94 98 08/18/16 16:00 98.6 65 18 135/77 96 08/18/16 12:00 97.0 70 16 129/77 99 08/18/16 08:00 98.3 51 18 140/86 93 08/18/16 08/18/16 08/19/16 15:00 23:00 07:00 Intake Total 1320 ml 2260 ml Balance 1320 ml 2260 ml Intake Oral 1320 ml 60 ml IV Total 2200 ml # Voids 7 5 # Bowel Movements 0 Result Diagram: 08/17/16 0836 08/18/16 0542 Other Results Laboratory Tests Test 08/17/16 08/18/16 08:36 05:42 White Blood Count 6.9 TH/MM3 Red Blood Count 5.54 MIL/MM3 Hemoglobin 14.6 GM/DL Hematocrit 45.4 % Mean Corpuscular Volume 81.9 FL Mean Corpuscular Hemoglobin 26.4 PG Mean Corpuscular Hemoglobin 32.2 % Concent Red Cell Distribution Width 12.7 % Platelet Count 166 TH/MM3 Mean Platelet Volume 9.4 FL Neutrophils (%) (Auto) 44.5 % Lymphocytes (%) (Auto) 44.1 % Monocytes (%) (Auto) 10.0 % Eosinophils (%) (Auto) 0.6 % Basophils (%) (Auto) 0.8 % Neutrophils # (Auto) 3.1 TH/MM3 Lymphocytes # (Auto) 3.0 TH/MM3 Monocytes # (Auto) 0.7 TH/MM3 Eosinophils # (Auto) 0.0 TH/MM3 Basophils # (Auto) 0.1 TH/MM3 CBC Comment DIFF FINAL Differential Comment Total Bilirubin 0.5 MG/DL Aspartate Amino Transf 11 U/L (AST/SGOT) Alanine Aminotransferase 27 U/L (ALT/SGPT) Alkaline Phosphatase 48 U/L Total Protein 8.0 GM/DL Albumin 4.3 GM/DL Lipase 105 U/L Sodium Level 142 MEQ/L Potassium Level 3.9 MEQ/L Chloride Level 106 MEQ/L Carbon Dioxide Level 27.5 MEQ/L Anion Gap 9 MEQ/L Blood Urea Nitrogen 9 MG/DL Creatinine 1.00 MG/DL Estimat Glomerular Filtration 100 ML/MIN Rate Random Glucose 179 MG/DL Calcium Level 8.0 MG/DL Imaging Last Impressions Abdomen/Pelvis CT 08/17/16 0000 Signed Impressions: Service Date/Time: Wednesday, August 17, 2016 09:25 - CONCLUSION: No acute disease. No significant change has occurred. Dharmesh Narayan MD Objective Remarks Exam: WDWN black male in no distress. HEENT: Pupils equal, mouth negative Neck: No JVD Heart: RRR with no murmur Lungs: clear Abdomen: Soft, mild epigastric tenderness, no rebound or guarding Extremities: Negative Neuro: negative A/P Assessment and Plan Assessment: --Recurrent epigastric pain with nausea/vomiting: EGD negative. Check for gastroparesis. --Hypertension --Type 2 diabetes mellitus --Hx of colon polyp --Cervical disc disease with radiculopathy Plan: Gastric emptying study not done yet (problems with scanner yesterday) If gastric emptying study is negative then I agree that a HIDA scan to check for biliary dyskinesia would be in order. He would need to be off Dilaudid for 24 hours to do that test. Will continue monitoring of glucose and sliding scale until he is able to eat without vomiting. Continue BP medication. Continue pain medication and Ondansetron as needed. Gorge Fernandez MD Aug 19, 2016 07:02
--- NOTE | 2016-08-19 07:58 | MB ---
cc: SAW VELASQUEZ M.D. DATE OF CONSULTATION 08/17/2016 DATE OF 1975 REASON FOR REFERRAL Abdominal discomfort, nausea, vomiting. Thank you for the consultation for this 41-year-old male who is known to have a history of diabetes and hypertension. The patient came to the emergency room because he was having abdominal cramping in the upper abdomen and he had significant nausea and vomiting not able to tolerate food. Apparently he was in the emergency room. He was given Phenergan and sent home, but came back and not tolerated any intake. Apparently he has had these symptom for six years on and off. He had seen Malika one time in the past and he has seen Dr. Rubio who scoped him and did upper endoscopy and colonoscopy in the past and there was no diagnosis made except colon polyps and mild gastritis. The patient denied any blood. No hematemesis. No other GI symptoms. PAST MEDICAL HISTORY Significant for: 1. Hypertension 2. Diabetes 3. Colon polyps 4. Cervical disk disease PAST SURGICAL HISTORY Significant for: 1. Colon EGD 2. Knee surgery ALLERGIES Multiple including MORPHINE AND METFORMIN. MEDICATIONS Reviewed in the chart. FAMILY HISTORY Significant for hyperlipidemia, reflux symptoms, hypertension, and dementia. SOCIAL HISTORY He denied any tobacco or alcohol. He denies any drugs. 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 REVIEW OF SYSTEMS All 12-point negative except HPI. PHYSICAL EXAMINATION Alert, oriented no acute distress. VITAL SIGNS: Stable at this time. HEENT: Pupils are round and reactive to light. NECK: Supple. CHEST: Clear. CARDIAC: Regular rate and rhythm. ABDOMEN: Soft, mild tenderness in the mid epigastric area. Positive bowel sounds. EXTREMITIES: No edema, clubbing or cyanosis. NEUROLOGIC: Intact. PSYCHOLOGIC: Appropriate. LABORATORY DATA Normal CBC, white count 6.9, hemoglobin 14.6, platelets 166. BUN 11, creatinine 1.3, normal liver function test. CT scan was unremarkable. ASSESSMENT/PLAN A 41-year-old -[place] gentleman who has diabetes and hypertension. He has chronic nausea and vomiting, unclear etiology of his symptoms, could be gastritis or gastroparesis. I am planning on doing upper endoscopy today. If this is negative, we might need to do a gastric emptying study. Apparently he had one about seven years ago which was unremarkable at that time. Meanwhile, also could be gastroenteritis. We will continue supportive care, hydration, antiemetics. Further plan depends on the finding on the above investigation. I do not see any sign of pancreatitis or abnormal liver function tests on him. MD JASON Yi/CHANDRAKANT /6:53 PM /7:42 AM
[2016-08-19 08:00] VITALS: BP 130/80; PULSE 50; RESP 18; TEMP 96.9; O2SAT 97
[2016-08-19] MEDS: PANTOPRAZOLE SODIUM 40 MG VIAL IV PUSH SCH (08:46)
[2016-08-19] MEDS: DOCUSATE SODIUM 100 MG/10 ML UDC PO SCH ×2 (08:47→21:15)
[2016-08-19] MEDS: SODIUM CHLOR 0.9% 1000 ML INJ 1,000 ML IV SCH ×2 (08:48→18:19)
[2016-08-19] MEDS: LOSARTAN 50 MG TAB PO SCH (08:49)
[2016-08-19 12:00] VITALS: BP 144/85; PULSE 56; RESP 20; TEMP 98.2; O2SAT 97
[2016-08-19 16:53] VITALS: BP 138/80; PULSE 60; RESP 20; TEMP 98.8; O2SAT 97
--- NOTE | 2016-08-19 17:00 | RADHPO ---
EXAM DATE/TIME: 08/19/2016 15:26 [facility] COMPARISON: No previous studies available for comparison. INDICATIONS : Abdominal pain for 2 days. DOSE: 1 mCi Tc99m Sulfur Colloid Labeled Whole egg PO IMAGIN hr MEDICAL HISTORY : Diabetes mellitus type 2. SURGICAL HISTORY : Right knee. ENCOUNTER: Initial ACUITY: 2 days PAIN SCALE: 3/10 LOCATION: Bilateral Abdomen. TECHNIQUE: Following the oral ingestion of radiotracer-labeled meal, dynamic sequential images in the URDU projec tion were acquired with simultaneous computer acquisition. The data set was decay-corrected. FINDINGS: LAG PHASE: There is 0 minutes before onset of gastric emptying. EMPTYING: Gastric emptying kinetics are linear. The decay-corrected, back-extrapolated half-time of emptying i s 18 minutes. (Normal for this lab is 45- 90 minutes.) INTERVENTION: None. CONCLUSION: Rapid gastric emptying with a half-time of emptying of 18 minutes. Vinicius Rutherford MD on August 19, 2016 at 16:58 Board Certified Radiologist. This report was verified electronically.
[2016-08-19] MEDS: ACETAMINOPHEN/HYDROcodone 325 MG/5 MG TAB PO PRN ×2 (18:08→22:20)
[2016-08-19 20:43] VITALS: BP 142/73; PULSE 68; RESP 18; TEMP 99.5; O2SAT 98
[2016-08-20 00:46] VITALS: BP 130/83; PULSE 69; RESP 16; TEMP 98; O2SAT 96
[2016-08-20] MEDS: ACETAMINOPHEN/HYDROcodone 325 MG/5 MG TAB PO PRN ×2 (02:11→14:30)
[2016-08-20] MEDS: SODIUM CHLOR 0.9% 1000 ML INJ 1,000 ML IV SCH ×3 (02:12→18:45)
[2016-08-20] MEDS: ONDANSETRON HCL 4 MG/2 ML VIAL IV PUSH PRN ×3 (02:31→18:36)
[2016-08-20] MEDS: HYDROmorphone HCL PF 1 MG/ML VIAL IV PRN ×5 (02:36→14:31)
[2016-08-20] MEDS: INSULIN ASPART SUPPLEMENTAL SCALE SQ SCH ×4 (06:23→20:15)
--- NOTE | 2016-08-20 07:39 | HHI.PR ---
Subjective Remarks Was feeling better yesterday but started having significant pain nausea vomiting again last night after he took Lortab. Patient reports that his pain is not necessarily associated with food intake but seems to be more associated with when his "intestines move". Has not noted any change in his urine color. Objective Vitals Vital Signs Date Time Temp Pulse Resp B/P Pulse Ox O2 Delivery O2 Flow Rate FiO2 08/20/16 06:49 20 08/20/16 03:16 20 08/20/16 03:16 20 08/20/16 00:46 98.0 69 16 130/83 96 08/19/16 20:43 99.5 68 18 142/73 98 08/19/16 16:53 98.8 60 20 138/80 97 08/19/16 12:00 98.2 56 20 144/85 97 08/19/16 08:00 96.9 50 18 130/80 97 08/19/16 08/19/16 08/20/16 15:00 23:00 07:00 Intake Total 625 ml Balance 625 ml IV Total 625 ml # Voids 3 2 GENERAL: Athletic build, no acute distress, alert and oriented, cooperative. SKIN: Warm and dry. HEAD: Normocephalic. EYES: No scleral icterus. No injection or drainage. NECK: Supple, trachea midline. No JVD or lymphadenopathy. CARDIOVASCULAR: Regular rate and rhythm without murmurs, gallops, or rubs. RESPIRATORY: Breath sounds equal bilaterally. No accessory muscle use. GASTROINTESTINAL: Abdomen soft, nondistended. Mild tenderness to palpation globally but primarily in the periumbilical area. Bowel sounds normal. MUSCULOSKELETAL: No cyanosis, or edema. BACK: Nontender without obvious deformity. No CVA tenderness. Result Diagram: 08/17/16 0836 08/18/16 0542 Imaging Last Impressions Abdomen/Pelvis CT 08/17/16 0000 Signed Impressions: Service Date/Time: Wednesday, August 17, 2016 09:25 - CONCLUSION: No acute disease. No significant change has occurred. Dharmesh Narayan MD Urinary Catheter: No Vascular Central Line Catheter: No A/P Problem List: (1) Abdominal pain Status: Acute Plan: recurrent issue since 2010. EGD, gastric emptying essentially negative. ? HIDA scan. He reports he has 2 negative HIDA scans in the past. ? check protoporphyrins. We'll try 1 dose of Solu-Medrol and nortriptyline to see if this may decrease his GI sensitivity since he reports the pain of intestinal movement tends to initiate cycle of emesis. (2) Nausea & vomiting Status: Acute Plan: improved. tolerated PO yesterday but became ill with nausea vomiting again last night. (3) Diabetes mellitus Status: Chronic Plan: Resume outpt meds when tolerating oral intake well. A1c pending (4) Hypertension Status: Chronic Plan: fair control. continue treatment. Assessment and Plan Discharge Planning Discharge when he is tolerating oral intake and not having significant flare of abdominal pain. Hopefully next 1-2 days. Sadly we weren't able to get him out today so he could be present for his ' s scheduled of their second son. Problem Qualifiers (1) Abdominal pain: Qualified Code: R10.84 - Generalized abdominal pain (2) Diabetes mellitus: (3) Hypertension: Qualified Code: I10 - Essential hypertension Neftali Massey MD PhD Aug 20, 2016 07:39
[2016-08-20] MEDS: PANTOPRAZOLE SODIUM 40 MG VIAL IV PUSH SCH (07:59)
[2016-08-20] MEDS: LOSARTAN 50 MG TAB PO SCH (08:00)
[2016-08-20] MEDS: DOCUSATE SODIUM 100 MG/10 ML UDC PO SCH ×2 (08:00→20:13)
[2016-08-20] MEDS ORDERED: methylPREDNISolone SOD SUCC 40 MG/1 ML VIAL IV PUSH ONE (08:15)
[2016-08-20] MEDS ORDERED: NORTRIPTYLINE HCL 25 MG CAP PO ONE (08:15)
[2016-08-20 08:36] VITALS: BP 139/81; PULSE 72; RESP 15; TEMP 98.4; O2SAT 97
--- NOTE | 2016-08-20 09:07 | HHI.GIFU ---
Subjective Remarks patient is having more nausea and discomfort today, started with having bowel movements, again he said he has these episodes every few months randomly without warning, he does not have constipation usually with it and not related to stress. Objective Vitals I&O Vital Signs Date Time Temp Pulse Resp B/P Pulse Ox O2 Delivery O2 Flow Rate FiO2 08/20/16 08:36 98.4 72 15 139/81 97 08/20/16 06:49 20 08/20/16 03:16 20 08/20/16 03:16 20 08/20/16 00:46 98.0 69 16 130/83 96 08/19/16 20:43 99.5 68 18 142/73 98 08/19/16 16:53 98.8 60 20 138/80 97 08/19/16 12:00 98.2 56 20 144/85 97 I/O 08/19/16 08/19/16 08/19/16 08/20/16 08/20/16 08/20/16 07:00 15:00 23:00 07:00 15:00 23:00 Intake Total 2260 ml 625 ml 1000 ml Balance 2260 ml 625 ml 1000 ml Intake Oral 60 ml IV Total 2200 ml 625 ml 1000 ml # Voids 5 3 2 # Bowel Movements 0 Physical Exam HEENT: Pupils round and reactive to light; normocephalic; atraumatic; no jaundice. Throat is clear. NECK: Neck is supple, no JVD, no lymphadenopathy. CHEST: Chest is clear to auscultation and percussion. CARDIAC: Regular rate and rhythm with no murmur gallop or rubs. ABDOMEN: Soft, nondistended, mild mid epigastric tender from vomiting this am; no hepatosplenomegaly; bowel sounds are present in all four quadrants. EXTREMITIES: No clubbing, cyanosis, or edema. SKIN: Normal; no rash; no jaundice. 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 Assessment and Plan Plan nausea vomiting, abdominal discomfort, ? etiology GES was rapid emptying, I doublt HIDA will show anything labs to R/O Porphyria, continue supportive care YI antiemetic. Sara Steiner MD Aug 20, 2016 09:07
[2016-08-20 12:51] VITALS: BP 155/96; PULSE 67; RESP 15; TEMP 99.4; O2SAT 98
[2016-08-20] MEDS ORDERED: KETOROLAC TROMETHAMINE 30 MG/ML (IVP) VIAL IV PUSH ONE (15:15)
[2016-08-20] MEDS: HYDROmorphone HCL PF 2 MG/ML VIAL IV PRN ×3 (15:31→21:47)
[2016-08-20 16:00] VITALS: BP 138/73; PULSE 81; RESP 20; TEMP 99.3; O2SAT 93
[2016-08-20 20:00] VITALS: BP 122/71; PULSE 76; RESP 20; TEMP 99.5; O2SAT 97
[2016-08-21] VITALS: BP 122/77; PULSE 87; RESP 19; TEMP 97.7; O2SAT 95
[2016-08-21] MEDS: SODIUM CHLOR 0.9% 1000 ML INJ 1,000 ML IV SCH ×3 (00:15→16:04)
[2016-08-21] MEDS: HYDROmorphone HCL PF 2 MG/ML VIAL IV PRN ×6 (01:13→19:36)
[2016-08-21] MEDS: INSULIN ASPART SUPPLEMENTAL SCALE SQ SCH ×4 (06:42→21:09)
--- NOTE | 2016-08-21 06:45 | HHI.PR ---
Subjective Remarks Feeling better this morning but had a rough day yesterday. Reports that he vomited approximately 7 times yesterday. We adjusted his Dilaudid dosing and gave him 1 injection of Toradol which seems to help. He slept well since about midnight or 1 AM he says. On a brighter note his baby boy Guy was born yesterday and is doing well. Patient reports that he ambulates around the room and in the null several times a day when his stomach isn't bothering him. Objective Vitals Vital Signs Date Time Temp Pulse Resp B/P Pulse Ox O2 Delivery O2 Flow Rate FiO2 08/21/16 00:00 97.7 87 19 122/77 95 08/20/16 20:00 99.5 76 20 122/71 97 08/20/16 16:01 20 08/20/16 16:00 99.3 81 20 138/73 93 08/20/16 13:03 20 08/20/16 12:51 99.4 67 15 155/96 98 08/20/16 08:36 98.4 72 15 139/81 97 08/20/16 08/20/16 08/21/16 15:00 23:00 07:00 Intake Total 480 ml Balance 480 ml Intake Oral 480 ml # Voids 5 2 # Bowel Movements 2 0 GENERAL: Athletic build, sleeping, arouses to voice. Alert and oriented and cooperative with exam. SKIN: Warm and dry. HEAD: Normocephalic. EYES: No scleral icterus. No injection or drainage. NECK: Supple, trachea midline. No JVD or lymphadenopathy. CARDIOVASCULAR: Regular rate and rhythm without murmurs, gallops, or rubs. RESPIRATORY: Breath sounds equal bilaterally. No accessory muscle use. GASTROINTESTINAL: Abdomen soft, nondistended. Mild tenderness throughout abdomen but more in the supraumbilical region. Bowel sounds normal. No rebound. MUSCULOSKELETAL: No cyanosis, or edema. BACK: Nontender without obvious deformity. No CVA tenderness. Result Diagram: 08/17/16 0836 08/18/16 0542 Imaging Last Impressions Abdomen/Pelvis CT 08/17/16 0000 Signed Impressions: Service Date/Time: Wednesday, August 17, 2016 09:25 - CONCLUSION: No acute disease. No significant change has occurred. Dharmesh Narayan MD Urinary Catheter: No Vascular Central Line Catheter: No A/P Problem List: (1) Abdominal pain Status: Acute Plan: recurrent issue since 2010. EGD, gastric emptying essentially negative. ? HIDA scan. He reports he has 2 negative HIDA scans in the past though not sure this will be fruitful. check protoporphyrins. Doing better presently. Patient reports that once he gets the pain under control he generally can start getting out of the cycle and convert to oral meds. (2) Nausea & vomiting Status: Acute Plan: improved. tolerated PO last evening. No vomiting since before midnight. Continue current therapy. Appreciate GI input. (3) Diabetes mellitus Status: Chronic Plan: Resume outpt meds when tolerating oral intake well. A1c pending (4) Hypertension Status: Chronic Plan: fair control. continue treatment. Assessment and Plan Discharge Planning Discharge when he is tolerating oral intake and not having significant flare of abdominal pain. Hopefully next 1-2 days. As noted above, his son Guy was born yesterday and is doing well. Problem Qualifiers (1) Abdominal pain: Qualified Code: R10.84 - Generalized abdominal pain (2) Diabetes mellitus: (3) Hypertension: Qualified Code: I10 - Essential hypertension Neftali Massey MD PhD Aug 21, 2016 06:45
[2016-08-21] MEDS ORDERED: KETOROLAC TROMETHAMINE 30 MG/ML (IVP) VIAL IV PUSH ONE (07:00)
[2016-08-21] MEDS: ENOXAPARIN SODIUM 30 MG/0.3 ML SYRINGE SQ SCH (07:59)
[2016-08-21 08:00] VITALS: BP 147/84; PULSE 70; RESP 18; TEMP 97.5; O2SAT 92
[2016-08-21 09:00] LABS: CHLORIDE 107 MEQ/L (98-107); POTASSIUM 3.6 MEQ/L (3.5-5.1); SODIUM (NA) 144 MEQ/L (136-145)
[2016-08-21 09:03] LABS: ANION GAP 12 MEQ/L (5-15); BICARBONATE 25.4 MEQ/L (21.0-32.0)
[2016-08-21 09:04] LABS: BLOOD UREA NITROGEN 14 MG/DL (7-18)
[2016-08-21 09:06] LABS: ALT (GPT) 18 U/L (12-78); AST (GOT) 9 U/L (15-37)
[2016-08-21 09:07] LABS: GLOMERULAR FILTRATION RATE 81 ML/MIN (>89)
[2016-08-21 09:08] LABS: TOTAL BILIRUBIN ADULT 0.5 MG/DL (0.2-1.0)
[2016-08-21 09:09] LABS: ALKALINE PHOSPHATASE 41 U/L (45-117)
[2016-08-21] MEDS: ONDANSETRON HCL 4 MG/2 ML VIAL IV PUSH PRN (09:46)
[2016-08-21] MEDS: DOCUSATE SODIUM 100 MG/10 ML UDC PO SCH ×2 (09:47→20:59)
[2016-08-21] MEDS: LOSARTAN 50 MG TAB PO SCH (09:47)
[2016-08-21] MEDS: PANTOPRAZOLE SODIUM 40 MG VIAL IV PUSH SCH (09:48)
--- NOTE | 2016-08-21 10:18 | HHI.GIFU ---
Subjective Remarks feels better today, had multiple episodes of N/V and abdominal pain yesterday, tolerating full liquid Objective Vitals I&O Vital Signs Date Time Temp Pulse Resp B/P Pulse Ox O2 Delivery O2 Flow Rate FiO2 08/21/16 08:00 97.5 70 18 147/84 92 08/21/16 00:00 97.7 87 19 122/77 95 08/20/16 20:00 99.5 76 20 122/71 97 08/20/16 16:01 20 08/20/16 16:00 99.3 81 20 138/73 93 08/20/16 13:03 20 08/20/16 12:51 99.4 67 15 155/96 98 I/O 08/20/16 08/20/16 08/20/16 08/21/16 08/21/16 08/21/16 07:00 15:00 23:00 07:00 15:00 23:00 Intake Total 1000 ml 1208 ml 1000 ml Balance 1000 ml 1208 ml 1000 ml Intake Oral 480 ml IV Total 1000 ml 728 ml 1000 ml # Voids 2 5 2 # Bowel Movements 2 0 Laboratory Laboratory Tests Test 08/21/16 07:33 Sodium Level 144 Potassium Level 3.6 Chloride Level 107 Carbon Dioxide Level 25.4 Anion Gap 12 Blood Urea Nitrogen 14 Creatinine 1.20 Estimat Glomerular Filtration 81 Rate Random Glucose 169 Calcium Level 8.4 Total Bilirubin 0.5 Aspartate Amino Transf 9 (AST/SGOT) Alanine Aminotransferase 18 (ALT/SGPT) Alkaline Phosphatase 41 Total Protein 7.0 Albumin 3.8 Physical Exam HEENT: Pupils round and reactive to light; normocephalic; atraumatic; no jaundice. Throat is clear. NECK: Neck is supple, no JVD, no lymphadenopathy. CHEST: Chest is clear to auscultation and percussion. CARDIAC: Regular rate and rhythm with no murmur gallop or rubs. ABDOMEN: Soft, nondistended, nontender ; no hepatosplenomegaly; bowel sounds are present in all four quadrants. EXTREMITIES: No clubbing, cyanosis, or edema. SKIN: Normal; no rash; no jaundice. 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 Assessment and Plan Plan nausea vomiting resolved, , abdominal discomfort, ? etiology GES was rapid emptying, labs to R/O Porphyria, continue supportive care YI antiemetic. home if tolerate diet and f/u as outpatient Sara Steiner MD Aug 21, 2016 10:18
[2016-08-21 11:02] LABS: HEMOGLOBIN A1a 1.5 %; HEMOGLOBIN Ao 80.3 %; HEMOGLOBIN F 2.2 %; HEMOGLOBIN LA1C 2.2 %; HEMOGLOBIN P3 3.9 %
[2016-08-21 12:00] VITALS: BP 134/87; PULSE 59; RESP 17; TEMP 98.2; O2SAT 92
[2016-08-21 16:00] VITALS: BP 127/85; PULSE 91; RESP 20; TEMP 98.1; O2SAT 93
[2016-08-21 20:11] VITALS: BP 152/92; PULSE 67; RESP 22; TEMP 98.4; O2SAT 97
[2016-08-21] MEDS: HYDROmorphone HCL 2 MG TAB PO PRN (20:59)
[2016-08-22] VITALS: BP 152/92; PULSE 52; RESP 18; TEMP 97.4; O2SAT 100
[2016-08-22] MEDS: HYDROmorphone HCL PF 2 MG/ML VIAL IV PRN ×3 (00:42→10:37)
[2016-08-22] MEDS: SODIUM CHLOR 0.9% 1000 ML INJ 1,000 ML IV SCH ×3 (00:42→18:45)
[2016-08-22] MEDS: HYDROmorphone HCL 2 MG TAB PO PRN ×4 (01:34→20:56)
[2016-08-22 04:00] VITALS: BP 146/97; PULSE 60; RESP 16; TEMP 98; O2SAT 93
[2016-08-22] MEDS: INSULIN ASPART SUPPLEMENTAL SCALE SQ SCH ×4 (06:30→20:56)
--- NOTE | 2016-08-22 07:23 | HHI.PR ---
Subjective Remarks Feeling somewhat better this morning. Tolerated regular diet yesterday. Still having bouts of abdominal pain but not vomiting currently. He reports that the oral Dilaudid helps but seems to fade relatively quickly. It is noted that he is on a low dose of this presently. Of note, his new son is doing well. Objective Vitals Vital Signs Date Time Temp Pulse Resp B/P Pulse Ox O2 Delivery O2 Flow Rate FiO2 08/22/16 04:00 98.0 60 16 146/97 93 08/22/16 00:00 97.4 52 18 152/92 100 08/21/16 20:11 98.4 67 22 152/92 97 08/21/16 16:00 98.1 91 20 127/85 93 08/21/16 12:00 98.2 59 17 134/87 92 08/21/16 08:00 97.5 70 18 147/84 92 08/21/16 08/21/16 08/22/16 15:00 23:00 07:00 Intake Total 975 ml 1795 ml 1165 ml Balance 975 ml 1795 ml 1165 ml Intake Oral 975 ml IV Total 1795 ml 1165 ml # Voids 4 6 # Bowel Movements 2 GENERAL: Athletic build, arouses to voice. Alert and oriented and cooperative with exam. SKIN: Warm and dry. HEAD: Normocephalic. EYES: No scleral icterus. No injection or drainage. NECK: Supple, trachea midline. No JVD or lymphadenopathy. CARDIOVASCULAR: Regular rate and rhythm without murmurs, gallops, or rubs. RESPIRATORY: Breath sounds equal bilaterally. No accessory muscle use. GASTROINTESTINAL: Abdomen soft, nondistended. Minimal tenderness throughout abdomen but more in the supraumbilical region. Bowel sounds normal. No rebound. MUSCULOSKELETAL: No cyanosis, or edema. BACK: Nontender without obvious deformity. No CVA tenderness. Result Diagram: 08/21/16 0733 Imaging Last Impressions Abdomen/Pelvis CT 08/17/16 0000 Signed Impressions: Service Date/Time: Wednesday, August 17, 2016 09:25 - CONCLUSION: No acute disease. No significant change has occurred. Dharmesh Narayan MD Urinary Catheter: No Vascular Central Line Catheter: No A/P Problem List: (1) Abdominal pain Status: Acute Plan: recurrent issue since 2010. EGD, gastric emptying essentially negative. ? HIDA scan. He reports he has 2 negative HIDA scans in the past though not sure this will be fruitful. check protoporphyrins. Doing better presently. Patient reports that once he gets the pain under control he generally can start getting out of the cycle and convert to oral meds. Increase oral hydromorphone dose. (2) Nausea & vomiting Status: Acute Plan: improved. tolerated regular PO last evening. No vomiting overnight. Continue current therapy. Appreciate GI input. (3) Diabetes mellitus Status: Chronic Plan: Resume outpt meds when tolerating oral intake well. A1c noted (4) Hypertension Status: Chronic Plan: fair control. continue treatment. Assessment and Plan Discharge Planning Discharge when he is tolerating oral intake and not having significant flare of abdominal pain. Hopefully tomorrow Problem Qualifiers (1) Abdominal pain: Qualified Code: R10.84 - Generalized abdominal pain (2) Diabetes mellitus: (3) Hypertension: Qualified Code: I10 - Essential hypertension Neftali Massey MD PhD Aug 22, 2016 07:23
[2016-08-22 07:59] VITALS: BP 137/84; PULSE 57; RESP 20; TEMP 98; O2SAT 95
[2016-08-22] MEDS: DOCUSATE SODIUM 100 MG/10 ML UDC PO SCH ×2 (10:33→20:55)
[2016-08-22] MEDS: ENOXAPARIN SODIUM 30 MG/0.3 ML SYRINGE SQ SCH (10:33)
[2016-08-22] MEDS: PANTOPRAZOLE SODIUM 40 MG VIAL IV PUSH SCH (10:36)
[2016-08-22] MEDS: LOSARTAN 50 MG TAB PO SCH (10:36)
[2016-08-22] MEDS: ONDANSETRON HCL 4 MG/2 ML VIAL IV PUSH PRN (10:38)
--- NOTE | 2016-08-22 10:52 | RADHPO ---
EXAM DATE/TIME: 08/22/2016 08:27 [facility] COMPARISON: CT ABDOMEN & PELVIS W CONTRAST, August 17, 2016, 9:25. INDICATIONS : Abdominal pain with nausea and vomiting. DOSE: 4.4 mCi Tc99m Mebrofenin IV MEDICAL HISTORY : Gastroesophageal reflux disease. Diabetes mellitus type 2. Hypertension. SURGICAL HISTORY : Right knee. ENCOUNTER: Initial ACUITY: 2 days PAIN SCALE: 4/10 LOCATION: Right upper quadrant TECHNIQUE: Following the intravenous administration of radiotracer, dynamic sequential images were performed wit h continuous acquisition. FINDINGS: HEPATIC KINETICS: There is prompt uptake of radiotracer in the liver. No focal defects are seen. There is normal rate of washout from the hepatic parenchyma. BILIARY CLEARANCE: Activity is first seen in the extrahepatic biliary system at 10 minutes. There is normal excretion i nto the small bowel. GALLBLADDER: Activity is first seen in the gallbladder at 15 minutes. Common bile duct kinetics are normal and th ere is no evidence of biliary obstruction. BILIARY ENTRIC REFLUX: None observed. CONCLUSION: No evidence of cystic duct or distal common bile duct obstruction. Fabricio Turcios MD on August 22, 2016 at 10:44 Board Certified Radiologist. This report was verified electronically.
[2016-08-22 11:34] VITALS: BP 153/90; PULSE 53; RESP 20; TEMP 99.4; O2SAT 94
[2016-08-22 16:00] VITALS: BP 147/82; PULSE 73; RESP 20; TEMP 99.1; O2SAT 97
[2016-08-22 20:00] VITALS: BP 140/80; PULSE 60; RESP 20; TEMP 99.2; O2SAT 97
[2016-08-23] VITALS: BP 149/85; PULSE 56; RESP 20; TEMP 98.3; O2SAT 97
[2016-08-23] MEDS: HYDROmorphone HCL 2 MG TAB PO PRN ×2 (01:21→05:44)
[2016-08-23] MEDS: SODIUM CHLOR 0.9% 1000 ML INJ 1,000 ML IV SCH (02:45)
[2016-08-23] MEDS: INSULIN ASPART SUPPLEMENTAL SCALE SQ SCH (06:47)
--- NOTE | 2016-08-23 07:24 | HHI.PR ---
Subjective Remarks Feeling much better. Tolerating regular diet. Pain controlled with oral medication for most part. No vomiting in over 24 hrs. Objective Vitals Vital Signs Date Time Temp Pulse Resp B/P Pulse Ox O2 Delivery O2 Flow Rate FiO2 08/23/16 00:00 98.3 56 20 149/85 97 08/22/16 20:00 99.2 60 20 140/80 97 08/22/16 17:25 16 08/22/16 16:00 99.1 73 20 147/82 97 08/22/16 11:34 99.4 53 20 153/90 94 08/22/16 11:08 18 08/22/16 07:59 98.0 57 20 137/84 95 08/22/16 08/22/16 08/23/16 15:00 23:00 07:00 Intake Total 2000 ml 580 ml 560 ml Balance 2000 ml 580 ml 560 ml Intake Oral 2000 ml 580 ml 560 ml # Voids 6 1 2 # Bowel Movements 0 0 GENERAL: Athletic build, ambulating in room. Alert and oriented and cooperative with exam. SKIN: Warm and dry. HEAD: Normocephalic. EYES: No scleral icterus. No injection or drainage. NECK: Supple, trachea midline. No JVD or lymphadenopathy. CARDIOVASCULAR: Regular rate and rhythm without murmurs, gallops, or rubs. RESPIRATORY: Breath sounds equal bilaterally. No accessory muscle use. GASTROINTESTINAL: Abdomen soft, nondistended. No ttp. Bowel sounds normal. No rebound. MUSCULOSKELETAL: No cyanosis, or edema. BACK: Nontender without obvious deformity. No CVA tenderness. Result Diagram: 08/21/16 0733 Imaging Last Impressions Abdomen/Pelvis CT 08/17/16 0000 Signed Impressions: Service Date/Time: Wednesday, August 17, 2016 09:25 - CONCLUSION: No acute disease. No significant change has occurred. Dharmesh Narayan MD Urinary Catheter: No Vascular Central Line Catheter: No A/P Problem List: (1) Abdominal pain Status: Acute Plan: recurrent issue since 2010. EGD, gastric emptying essentially negative. HIDA negative. check protoporphyrins. Doing better presently. Patient reports that once he gets the pain under control he generally can start getting out of the cycle and convert to oral meds. Pain controlled with oral med. (2) Nausea & vomiting Status: Acute Plan: improved. Tolerating regular diet. (3) Diabetes mellitus Status: Chronic Plan: Resume outpt meds when tolerating oral intake well. A1c noted (4) Hypertension Status: Chronic Plan: fair control. continue treatment. Assessment and Plan Discharge Planning d/c home today Problem Qualifiers (1) Abdominal pain: Qualified Code: R10.84 - Generalized abdominal pain (2) Diabetes mellitus: (3) Hypertension: Qualified Code: I10 - Essential hypertension Neftali Massey MD PhD Aug 23, 2016 07:24
[2016-08-23] MEDS ORDERED: SENN1TAB2 PO (07:30)
[2016-08-23] MEDS ORDERED: DILA2TAB2 PO (07:30)
[2016-08-23] MEDS ORDERED: ONDA4TAB7 SL (07:30)
--- NOTE | 2016-08-23 07:32 | HHI.DS ---
Discharge Summary Admission Date Aug 17, 2016 at 10:37 Discharge Date: Aug 23, 2016 Admitting Diagnosis intractable abdominal pain (1) Abdominal pain Diagnosis: Principal (2) Nausea & vomiting Diagnosis: Principal (3) Diabetes mellitus Diagnosis: Secondary (4) Hypertension Diagnosis: Secondary Consultants Dr Umaña, GI Procedures EGD with biopsy on August 17 which demonstrated mild gastritis Brief History This is a 41-year-old black male who came to the emergency room for the second time in the last day. He was seen here at [facility] yesterday with abdominal pain in the upper abdomen with no clear-cut etiology of pain. He had been having vomiting as well. He was given Phenergan and did not really help. He continued to have vomiting and worsening upper abdominal pain. This morning he came to the ED where he had episodes of retching and not really bringing anything up, with crampy pain in his upper abdomen. He states his symptoms began about a week ago but have gotten worse in the last couple days. He has had problems with this symptomatology off and on since 2010. He has had hospitalizations back then, some time up to [id number] weeks. He even went up to [facility] at that time, went there one time. He has had prior gastric emptying studies in the past, did not show any definite gastroparesis. He has had prior upper endoscopies on more than one occasion but the last one was on 12/02/2014 where he was noted to have a gastric polyp, hiatal hernia and gastritis. He had EGD on 03/07/2011 that showed small Reina Leigh tear and gastritis. He has had colon evaluation with colonoscopy on 12/02/2014 that showed a polyp. He has had intermittent CAT scans that did not reveal the cause of his symptoms. He had a HIDA biliary scan on 03/08/2011 that showed normal gallbladder ejection fraction according to the report equaling approximately 40%. There was minimal biliary enteric reflux noted at the time, no evidence of cystic duct or distal common bile duct obstruction. He has had no diarrhea, constipation, melena, rectal bleeding. He has not been vomiting any blood. A CAT scan done today showed no acute process. He is being admitted for pain control and control of his vomiting and a GI consult. CBC/BMP: 08/21/16 0733 Significant Findings Laboratory Tests Test 08/20/16 08/21/16 11:25 07:33 Hemoglobin A1c 8.5 % (4.3-6.0) Estimat Glomerular Filtration 81 ML/MIN (>89) Rate Random Glucose 169 MG/DL (74-106) Calcium Level 8.4 MG/DL (8.5-10.1) Aspartate Amino Transf 9 U/L (15-37) (AST/SGOT) Alkaline Phosphatase 41 U/L (45-117) Hospital Course Patient admitted with intractable nausea vomiting and abdominal pain as noted above. Additionally has noted patient has had recurrent problems with this since 2010 with flares approximately every 6-7 months. The episodes typically last anywhere from 3-7 days and are generally overcome once pain is under control. He was placed on IV fluids, anti-emetics and pain medications. Gastroenterology consult was obtained and EGD was performed which demonstrated mild gastritis. Additionally patient had negative HIDA scan/gastric emptying study and CT scan of abdomen and pelvis. Patient was continued on IV fluids and pain medications as well as anti- emetics. He slowly but steadily improved to tolerating oral intake and diabetic diet. Pain came under control with oral medications. Labs for porphyria are still pending and it is still somewhat unclear the etiology of these recurrent bouts of nausea and vomiting with abdominal pain in this patient. He will be discharged home with further outpatient evaluation. Pt Condition on Discharge: Stable Discharge Disposition: Discharge Home Discharge Instructions DIET: Follow Instructions for: Diabetic Diet Additional Diet Instructions: advance diet slowly as tolerated Activities you can perform: Regular-No Restrictions Follow up Referrals: Gastroenterology PCP Follow-up New Medications: Ondansetron Odt (Ondansetron Odt) 4 Mg Tab 4 MG SL Q6HR PRN Nausea/Vomiting #12 Ref 0 TAB Sennosides-Docusate Sodium (Senna-Docusate Sodium) 8.6-50 Mg Tab 1 TAB PO BID Constipation #30 Ref 0 TAB Hydromorphone (Dilaudid) 2 Mg Tab 4 MG PO Q4H PRN PAIN LEVEL 3-10 #30 TAB Continued Medications: Glimepiride (Glimepiride) 2 Mg Tab 2 MG PO BIDAC Blood Sugar Management #60 Ref 0 TAB Losartan (Losartan) 100 Mg Tab 100 MG PO DAILY Blood Pressure Management #30 Ref 0 TAB Discontinued Medications: Tramadol (Tramadol) 50 Mg Tab 50 MG PO Q6H PRN PAIN Ref 0 TAB Additional Information Labs to evaluate porphyria are pending. Make sure to follow up with her primary physician regarding these results. Neftali Massey MD PhD Aug 23, 2016 07:32
[2016-08-23] MEDS ORDERED: REGL10TA5 PO (15:17)
[2016-08-24 16:25] LABS: HEPATCARBOXYLPORPHYRINS 5 nmol/24 h (<=9); HEXACARBOXYL PORPHYRINS 3 nmol/24 h (<=8); PENTACARBOXYL PORPHYRINS 6 nmol/24 h (<=10); PORPHOBILINOGEN 0.6 mcmol/24 h (<=2.2); PORPHYRINS QN COLLECTION DUR 24 h (()); PORPHYRINS QN UR TOTAL VOLUME 1325 mL (())
== END 2016-08-23 08:43 | disposition home or self-care (01) ==
LOC: PHED 07:55 → PHEDA 10:37 → PH3A 11:29
PROVIDERS: ADMIT Family Medicine; ATTEND Family Medicine
DX: K29.50 Unspecified chronic gastritis without bleeding (principal); E11.9 Type 2 diabetes mellitus without complications; I10 Essential (primary) hypertension; K21.9 Gastro-esophageal reflux disease without esophagitis; M54.12 Radiculopathy, cervical region; Z79.84 Long term (current) use of oral hypoglycemic drugs; Z86.010 Personal history of colon polyps; Z88.8 Allergy status to other drugs, medicaments and biological substances; Z88.5 Allergy status to narcotic agent
CPT/HCPCS: 43239; 74177; 78226; 78264; 80048; 80053; 82948; 83036; 83690; 84110; 84120; 84311; 85025; 88305; 88312; 96361; 96372; 96374; 96375; 99285; A9537; A9541; C9113; G0378; J0500; J1170; J1650; J1815; J1885; J2405; J2920; J7030; Q9967

== ENCOUNTER 2016-08-23 12:36 | Emergency (ER) | payer OTHER ==
[~2016-08-23] VITALS: Ht 190.5 cm; Wt 145.5 kg
[~2016-08-23 12:36] MED LIST changes: +DILA2TAB2 PO; +ONDA4TAB7 SL; -PROM25TA5 PO; +SENN1TAB2 PO
[2016-08-23 12:50] VITALS: BP 137/102; PULSE 88; RESP 20; TEMP 98; O2SAT 100
[2016-08-23] MEDS ORDERED: SODIUM CHLOR 0.9% 1000 ML INJ 1,000 ML IV SCH (13:25)
[2016-08-23] MEDS ORDERED: chlorproMAZINE INJ 25 MG in SODIUM CHLORID 0.9% 500 ML INJ 500 ML IV ONE (13:30)
[2016-08-23] MEDS ORDERED: SODIUM CHLORIDE 0.9% FLUSH 10 ML FLUSH IV FLUSH PRN (13:30)
[2016-08-23 13:49] LABS: AUTOMATED NEUTROPHIL # 3.3 TH/MM3 (1.8-7.7); BASOPHIL # 0.2 TH/MM3 (0-0.2); BASOPHIL % 3.2 % (0.0-2.0); EOSINOPHIL % 0.3 % (0.0-4.0); HEMATOCRIT 44.2 % (39.0-51.0); HEMO FLAGS DIFF FINAL; LYMPH % 24.4 % (9.0-44.0); LYMPHOCYTE # 1.2 TH/MM3 (1.0-4.8); MEAN CELL VOLUME 80.3 FL (80.0-100.0); MEAN CORPUSCULAR HGB CONC 33.6 % (32.0-36.0); MONO % 8.3 % (0.0-8.0); NEUT % 63.8 % (16.0-70.0); PLATELET COUNT 181 TH/MM3 (150-450); RED BLOOD COUNT 5.51 MIL/MM3 (4.50-5.90); RED CELL DISTRIBUTION WIDTH 12.1 % (11.6-17.2); WHITE BLOOD COUNT 5.1 TH/MM3 (4.0-11.0)
[2016-08-23 13:56] LABS: CHLORIDE 102 MEQ/L (98-107); SODIUM (NA) 141 MEQ/L (136-145)
--- NOTE | 2016-08-23 14:12 | RADHPO ---
EXAM DATE/TIME: 08/23/2016 13:34 [facility] COMPARISON: No previous studies available for comparison. INDICATIONS : Chest discomfort; possible free air vomiting. MEDICAL HISTORY : Gastroesophageal reflux disease. Hypertension. Inflammatory bowel disease.Diabetes SURGICAL HISTORY : None. ENCOUNTER: Initial ACUITY: 1 day PAIN SCORE: 1/10 LOCATION: Bilateral chest FINDINGS: A single view of the chest demonstrates the lungs to be symmetrically aerated without evidence of mas s, infiltrate or effusion. The cardiomediastinal contours are unremarkable. Osseous structures are intact. No free air is noted. CONCLUSION: 1. No free air is noted. 2. No acute cardiopulmonary disease. Fabricio Turcios MD on August 23, 2016 at 14:10 Board Certified Radiologist. This report was verified electronically.
[2016-08-23 14:19] LABS: POTASSIUM 4.5 MEQ/L (3.5-5.1)
[2016-08-23 14:21] LABS: ALKALINE PHOSPHATASE 53 U/L (45-117); ALT (GPT) 26 U/L (12-78); ANION GAP 13 MEQ/L (5-15); AST (GOT) 31 U/L (15-37); BICARBONATE 26.1 MEQ/L (21.0-32.0); BLOOD UREA NITROGEN 10 MG/DL (7-18); GLOMERULAR FILTRATION RATE 63 ML/MIN (>89); TOTAL BILIRUBIN ADULT 0.6 MG/DL (0.2-1.0)
[2016-08-23] MEDS ORDERED: KETOROLAC TROMETHAMINE 30 MG/ML (IVP) VIAL IV PUSH ONE (14:45)
[2016-08-23] MEDS ORDERED: PANTOPRAZOLE SODIUM 40 MG VIAL IVP ONE (14:45)
[2016-08-23] MEDS ORDERED: SODIUM CHLOR 0.9% 1000 ML INJ 1,000 ML IV ONE (14:45)
--- NOTE | 2016-08-23 14:46 | PD ---
HPI Chief Complaint: Abdominal Pain Time Seen by Provider: 13:19 Travel History International Travel<30 days: No Contact w/Intl Traveler<30days: No Traveled to known affect area: No History of Present Illness HPI Patient is a 41-year-old male who returns to emergency room after being discharged from the hospital this morning for intractable abdominal pain. Patient reports that he has been having increased abdominal pain which is an intermittent nature since 2010. Patient reports that when he has bouts of these symptoms, he requires admission to the hospital with administration of high dose IV Dilaudid and antiemetics. Patient reports that he usually is symptomatic every few months and symptoms usually resolve after he is treated with high-dose opioids. Patient reports that he left the hospital this morning after he eat breakfast and felt fine, reports that he was admitted from 08/17 and discharged this morning. r\Reports that after he was discharged, he went over to [facility] to visit his who just delivered a baby on Monday , reports that he had a bowel movement while there and began to feel sick again. Patient reports that he began to feel nauseous and has been vomiting and has not been able to stop vomiting since this morning. Patient reports that during his admission from August 17 2 August 23, 2016, he had an EGD and with biopsy on August 17 which showed some mild gastritis, he also had a gastric emptying study as well as a HIDA scan and CT of his abdomen pelvis which were all benign. Patient was seen by Dr. Garcia with GI - unsure why he is having all of this abdominal pain at this time. Patient reports that he has been having increased abdominal pain since August. PFSH Past Medical History Blood Disorders: No Cancer: No Cardiovascular Problems: No High Cholesterol: No Diabetes: Yes Patient Takes Glucophage: No Diminished Hearing: No Endocrine: No Gastrointestinal Disorders: Yes (IBS; UNKOWN ABD/ GASTRIC ISSUES ) GERD: No Genitourinary: No Hiatal Hernia: No Hypertension: Yes Immune Disorder: No Implanted Vascular Access Dvce: Yes Musculoskeletal: Yes (CHRONIC BACK, r knee) Neurologic: Yes Psychiatric: No Reproductive: No Respiratory: No Ulcer: No Influenza Vaccination: No PNEUMOCCOCAL Vaccine (Year): 2 ?: Not Past Surgical History Abdominal Surgery: Yes Cardiac Surgery: No Ear Surgery: No Endocrine Surgery: No Eye Surgery: No Genitourinary Surgery: No Oral Surgery: No Thoracic Surgery: No Other Surgery: No Social History Alcohol Use: No Tobacco Use: No Substance Use: No Allergies-Medications (Allergen,Severity, Reaction): Coded Allergies: Morphine (Verified Allergy, Severe, NAUSEA (PT ALLERGICE PER PT ON ORDER@0350), 08/23/16) Metformin (Verified Adverse Reaction, Severe, Diarrhea, 08/23/16) Reported Meds & Prescriptions Reported Meds & Active Scripts Active Reglan (Metoclopramide HCl) 10 Mg Tab 10 Mg PO TIDAC Ondansetron Odt 4 Mg Tab 4 Mg SL Q6HR PRN Senna-Docusate Sodium (Sennosides-Docusate Sodium) 8.6-50 Mg Tab 1 Tab PO BID Dilaudid (Hydromorphone HCl) 2 Mg Tab 4 Mg PO Q4H PRN Reported Glimepiride 2 Mg Tab 2 Mg PO BIDAC Losartan (Losartan Potassium) 100 Mg Tab 100 Mg PO DAILY Review of Systems General / Constitutional: No: Fever Eyes: No: Visual changes HENT: No: Headaches Cardiovascular: No: Chest Pain or Discomfort Respiratory: No: Shortness of Breath Gastrointestinal: Positive: Nausea, Vomiting, Abdominal Pain Genitourinary: No: Dysuria Musculoskeletal: No: Pain Skin: No Rash Neurologic: No: Weakness Psychiatric: No: Depression Endocrine: No: Polydipsia Hematologic/Lymphatic: No: Easy Bruising Physical Exam Narrative GENERAL: moderate distress SKIN: Focused skin assessment warm/dry. HEAD: Atraumatic. Normocephalic. EYES: Pupils equal and round. No scleral icterus. No injection or drainage. ENT: No nasal bleeding or discharge. Mucous membranes pink and moist. NECK: Trachea midline. No JVD. CARDIOVASCULAR: Regular rate and rhythm. No murmur appreciated. RESPIRATORY: No accessory muscle use. Clear to auscultation. Breath sounds equal bilaterally. GASTROINTESTINAL: Abdomen soft, nondistended. increased tenderness to epigastrium MUSCULOSKELETAL: No obvious deformities. No clubbing. No cyanosis. No edema. NEUROLOGICAL: Awake and alert. No obvious cranial nerve deficits. Motor grossly within normal limits. Normal speech. PSYCHIATRIC: Appropriate mood and affect; insight and judgment normal. Data Data Last Documented VS Vital Signs Date Time Temp Pulse Resp B/P Pulse Ox O2 Delivery O2 Flow Rate FiO2 08/23/16 15:04 88 20 140/99 99 4/18/17 12:50 98.0 Orders Complete Blood Count With Diff (08/23/16 13:25) Comprehensive Metabolic Panel (08/23/16 13:25) Lipase (08/23/16 13:25) Iv Access Insert/Monitor (08/23/16 13:25) Oximetry (08/23/16 13:25) NPO (08/23/16 13:25) Sodium Chlor 0.9% 1000 Ml Inj (Ns 1000 M (08/23/16 13:25) Sodium Chloride 0.9% Flush (Ns Flush) (08/23/16 13:30) Chest, Single Ap (08/23/16 13:25) Chlorpromazine Inj (Thorazine Inj) (08/23/16 13:30) Ketorolac Inj (Toradol Inj) (08/23/16 14:45) Sodium Chlor 0.9% 1000 Ml Inj (Ns 1000 M (08/23/16 14:45) Pantoprazole Inj (Protonix Inj) (08/23/16 14:45) Labs Laboratory Tests Test 08/23/16 13:15 White Blood Count 5.1 TH/MM3 Red Blood Count 5.51 MIL/MM3 Hemoglobin 14.9 GM/DL Hematocrit 44.2 % Mean Corpuscular Volume 80.3 FL Mean Corpuscular Hemoglobin 27.0 PG Mean Corpuscular Hemoglobin 33.6 % Concent Red Cell Distribution Width 12.1 % Platelet Count 181 TH/MM3 Mean Platelet Volume 9.3 FL Neutrophils (%) (Auto) 63.8 % Lymphocytes (%) (Auto) 24.4 % Monocytes (%) (Auto) 8.3 % Eosinophils (%) (Auto) 0.3 % Basophils (%) (Auto) 3.2 % Neutrophils # (Auto) 3.3 TH/MM3 Lymphocytes # (Auto) 1.2 TH/MM3 Monocytes # (Auto) 0.4 TH/MM3 Eosinophils # (Auto) 0.0 TH/MM3 Basophils # (Auto) 0.2 TH/MM3 CBC Comment DIFF FINAL Differential Comment Sodium Level 141 MEQ/L Potassium Level 4.5 MEQ/L Chloride Level 102 MEQ/L Carbon Dioxide Level 26.1 MEQ/L Anion Gap 13 MEQ/L Blood Urea Nitrogen 10 MG/DL Creatinine 1.50 MG/DL Estimat Glomerular Filtration 63 ML/MIN Rate Random Glucose 197 MG/DL Calcium Level 9.8 MG/DL Total Bilirubin 0.6 MG/DL Aspartate Amino Transf 31 U/L (AST/SGOT) Alanine Aminotransferase 26 U/L (ALT/SGPT) Alkaline Phosphatase 53 U/L Total Protein 9.0 GM/DL Albumin 4.7 GM/DL Lipase 134 U/L MDM Medical Decision Making Medical Screen Exam Complete: Yes Emergency Medical Condition: Yes Interpretation(s) Vital Signs Date Time Temp Pulse Resp B/P Pulse Ox O2 Delivery O2 Flow Rate FiO2 08/23/16 12:50 98.0 88 20 137/102 100 Laboratory Tests Test 08/23/16 13:15 White Blood Count 5.1 TH/MM3 (4.0-11.0) Red Blood Count 5.51 MIL/MM3 (4.50-5.90) Hemoglobin 14.9 GM/DL (13.0-17.0) Hematocrit 44.2 % (39.0-51.0) Mean Corpuscular Volume 80.3 FL (80.0-100.0) Mean Corpuscular Hemoglobin 27.0 PG (27.0-34.0) Mean Corpuscular Hemoglobin 33.6 % Concent (32.0-36.0) Red Cell Distribution Width 12.1 % (11.6-17.2) Platelet Count 181 TH/MM3 (150-450) Mean Platelet Volume 9.3 FL (7.0-11.0) Neutrophils (%) (Auto) 63.8 % (16.0-70.0) Lymphocytes (%) (Auto) 24.4 % (9.0-44.0) Monocytes (%) (Auto) 8.3 % (0.0-8.0) Eosinophils (%) (Auto) 0.3 % (0.0-4.0) Basophils (%) (Auto) 3.2 % (0.0-2.0) Neutrophils # (Auto) 3.3 TH/MM3 (1.8-7.7) Lymphocytes # (Auto) 1.2 TH/MM3 (1.0-4.8) Monocytes # (Auto) 0.4 TH/MM3 (0-0.9) Eosinophils # (Auto) 0.0 TH/MM3 (0-0.4) Basophils # (Auto) 0.2 TH/MM3 (0-0.2) CBC Comment DIFF FINAL Differential Comment Sodium Level 141 MEQ/L (136-145) Potassium Level 4.5 MEQ/L (3.5-5.1) Chloride Level 102 MEQ/L (98-107) Carbon Dioxide Level 26.1 MEQ/L (21.0-32.0) Anion Gap 13 MEQ/L (5-15) Blood Urea Nitrogen 10 MG/DL (7-18) Creatinine 1.50 MG/DL (0.60-1.30) Estimat Glomerular Filtration 63 ML/MIN (>89) Rate Random Glucose 197 MG/DL (74-106) Calcium Level 9.8 MG/DL (8.5-10.1) Total Bilirubin 0.6 MG/DL (0.2-1.0) Aspartate Amino Transf 31 U/L (15-37) (AST/SGOT) Alanine Aminotransferase 26 U/L (12-78) (ALT/SGPT) Alkaline Phosphatase 53 U/L (45-117) Total Protein 9.0 GM/DL (6.4-8.2) Albumin 4.7 GM/DL (3.4-5.0) Lipase 134 U/L (73-393) Differential Diagnosis Gastroparesis, intractable nausea or vomiting, hypertension, abdominal pain, electrolyte abnormality Narrative Course Patient is a 41-year-old male who returns to emergency room after he was discharges morning for intractable nausea and vomiting. Patient was recently minute from August 17 to August 23 for evaluation and treatment of intractable abdominal pain. While admitted to the hospital, patient had a CT of his abdomen and pelvis as well as HIDA scan and a gastric emptying study and an EGD which showed mild gastritis. Patient was followed and seen by Dr. Grier Patient reports that his pain is acute on chronic in nature, reports that his pain is similar to when he was admitted to the hospital on August 17, 2016 Plan to obtain x-ray the chest to rule out free air in the abdomen. We'll obtain lab work as well as we'll treat for pain and nausea with Thorazine. Plan to hydrate patient with IV fluids. Call made to Dr. Umaña Case reviewed with Dr. Weiss - will have patient follow up with Dr. Umaña tomorrow or . Will discharge patient home with [facility] Patient reevaluated, patient feeling much better while in the emergency room. Patient with GI, will return to emergency room as needed. I did review all labs and all studies with patient in detail. Patient understands signs and symptoms of when to return to the emergency room. CBC & BMP Diagram 08/23/16 13:15 Last Impressions Chest X-Ray 08/23/16 1325 Signed Impressions: Service Date/Time: Tuesday, August 23, 2016 13:34 - CONCLUSION: 1. No free air is noted. 2. No acute cardiopulmonary disease. Fabricio Turcios MD Diagnosis Primary Impression: Abdominal pain Qualified Code: R10.84 - Generalized abdominal pain Additional Impression: Nausea & vomiting Qualified Code: R11.2 - Non-intractable vomiting with nausea, unspecified vomiting type Patient Instructions: General Instructions Additional Instructions: Please follow up with Dr. Umaña tomorrow or Please call your primary care doctor for earliest follow-up. Return to emergency room as needed Please drink plenty of fluids Scripts Metoclopramide (Reglan)10 Mg Tab10 Mg PO TIDAC #15 TAB Ref 0 Prov:Danni Deleon DO 08/23/16 Disposition: 01 DISCHARGE HOME Condition: Stable Danni Deleon DO Aug 23, 2016 14:46
[2016-08-23 15:04] VITALS: BP 140/99; PULSE 88; RESP 20; O2SAT 99
[2016-08-23] MEDS ORDERED: REGL10TA5 PO (15:17)
[2016-08-23 15:56] VITALS: RESP 18
== END 2016-08-23 16:07 | disposition home or self-care (01) ==
LOC: PHED 12:36
DX: R10.84 Generalized abdominal pain (principal); R11.2 Nausea with vomiting, unspecified; E11.9 Type 2 diabetes mellitus without complications; I10 Essential (primary) hypertension
CPT/HCPCS: 71010; 80053; 83690; 85025; 96361; 96365; 96375; 99284; C9113; J1885; J3230; J7030; J7040